=== PATIENT | female | born 1995 | race Caucasian/White ===

== ENCOUNTER → 2017-01-20 | Outpatient (REF) | payer OTHER, MEDICAID ==
[~2017-01-20] MED LIST: COLA100C3 PO; MILKSUS PO; MOTR200T44 PO; PRENTAB40 PO; PRIL20CA9 PO; TYLE325T5 PO; ZOFR4TAB3 PO
== END ==
LOC: M LAB REF 11:16
PROVIDERS: ATTEND Physician Assistant Medical
DX: J02.9 Acute pharyngitis, unspecified (principal)

== ENCOUNTER 2017-01-22 12:41 | Emergency (ER) | payer OTHER, MEDICAID ==
[~2017-01-22] VITALS: Ht 157.5 cm; Wt 129.3 kg
[2017-01-22 12:41] VITALS: BP 127/82
[~2017-01-22 12:41] MED LIST changes: -PRIL20CA9 PO; -ZOFR4TAB3 PO
[2017-01-22] MEDS ORDERED: ONDANSETRON 4 MG ORAL DISINTEGRATING TAB (S0181) PO ONE (13:15)
[2017-01-22 13:48] LABS: BASO # 0.1 K/mm3 (0.0-0.2); BASO % 0.7 % (0.0-1.0); EOS # 0.3 K/mm3 (0.0-0.50); EOS % 2.9 % (0.0-3.0); LARGE UNSTAINED CELL # 0.3 K/mm3 (0.0-0.4); LARGE UNSTAINED CELL % 2.9 % (0.0-4.0); LYMPH # 2.2 K/mm3 (1.5-6.5); LYMPH % 19.6 % (24.0-44.0); MEAN CORPUSCULAR HEMOGLOBIN 28.1 pg (27.0-33.0); MEAN CORPUSCULAR HGB CONC 34.6 g/dl (32.0-36.5); MEAN CORPUSCULAR VOLUME 81.2 fl (80.0-96.0); MONO # 0.5 K/mm3 (0.0-0.8); NEUTROPHILS # 6.7 K/mm3 (1.8-7.7); PLATELET COUNT, AUTOMATED 338 k/mm3 (150-450); RED CELL DISTRIBUTION WIDTH 13.2 % (11.5-14.5); WHITE BLOOD COUNT 9.7 K/mm3 (4.0-10.0)
[2017-01-22 14:08] LABS: ALBUMIN 3.5 GM/DL (3.2-5.2); ALBUMIN/GLOBULIN RATIO 0.92 (1.00-1.93); ALKALINE PHOSPHATASE 90 U/L (45-117); ALT/SGPT 117 U/L (12-78); AMYLASE 17 U/L (25-115); ANION GAP 11 MEQ/L (8-16); AST/SGOT 57 U/L (15-37); BILIRUBIN,DIRECT 0.2 MG/DL (0.0-0.2); BILIRUBIN,TOTAL 0.6 MG/DL (0.2-1.0); BLOOD UREA NITROGEN 14 MG/DL (7-18); CALCIUM LEVEL 8.1 MG/DL (8.5-10.1); CARBON DIOXIDE LEVEL 23 MEQ/L (21-32); CHLORIDE LEVEL 103 MEQ/L (98-107); CREATININE FOR GFR 0.67 MG/DL (0.55-1.02); GLOMERULAR FILTRATION RATE > 60.0 (>60); GLUCOSE, FASTING 107 MG/DL (70-105); POTASSIUM SERUM 3.1 MEQ/L (3.5-5.1); SODIUM LEVEL 137 MEQ/L (136-145); TOTAL PROTEIN 7.3 GM/DL (6.4-8.2)
[2017-01-22] MEDS ORDERED: PRIL20CA9 PO (15:40)
[2017-01-22] MEDS ORDERED: ZOFR4TAB3 PO (15:40)
[2017-01-22] MEDS ORDERED: POTASSIUM CHLORIDE 10 MEQ SR TABLET PO ONE (15:45)
--- NOTE | 2017-01-23 07:42 | REP ---
RIGHT UPPER QUADRANT ULTRASOUND: Real-time sonographic evaluation of the right upper quadrant performed. The gallbladder is filled with sludge. No definite stones are seen. There is no gallbladder wall thickening. There is no pericholecystic fluid. There is no intrahepatic or extrahepatic biliary dilatation, the common bile duct measuring 4 mm in diameter. The patient was tender at the site of the gallbladder with transducer pressure. There appears to be fibrofatty infiltration of the liver. No other gross liver or pancreatic abnormality is seen. The study is limited, however, by patient body habitus and bowel gas. The right kidney demonstrates no hydronephrosis with normal size at 11. 6 cm in length. IMPRESSION: Somewhat limited exam due to patient body habitus and bowel gas. The gallbladder is filled with sludge and the patient is tender at that site with transducer pressure. No gallstones are seen. There is no evidence of gallbladder wall thickening, pericholecystic fluid or biliary dilatation. Signed by Joe Bhatti MD 01/23/2017 12:18 P
== END 2017-01-22 16:01 | disposition home or self-care (01) ==
LOC: M ED 13:45
DX: K80.50 Calculus of bile duct without cholangitis or cholecystitis without obstruction (principal); K76.0 Fatty (change of) liver, not elsewhere classified; J45.909 Unspecified asthma, uncomplicated; Z85.41 Personal history of malignant neoplasm of cervix uteri; F41.9 Anxiety disorder, unspecified; F32.9 Major depressive disorder, single episode, unspecified; Z79.899 Other long term (current) drug therapy

== ENCOUNTER → 2020-04-28 | Outpatient (REF) | payer OTHER ==
[~2020-04-28] MED LIST changes: -COLA100C3 PO; +COLA100C5 PO; +MILK120011 PO; -MILKSUS PO; +PRIL20CA9 PO; +ZOFR4TAB14 PO
[2020-06-16 11:16] LABS: APPEARANCE, URINE HAZY (CLEAR); BACTERIA, URINE AUTO NEGATIVE (NEGATIVE); BILIRUBIN, URINE AUTO NEGATIVE (NEGATIVE); BLOOD, URINE BLOOD 3+ (NEGATIVE); COLOR, URINE YELLOW (YELLOW); GLUCOSE, URINE (UA) AUTO NEGATIVE (NEGATIVE); KETONE, URINE AUTO NEGATIVE (NEGATIVE); LEUKOCYTE ESTERASE, URINE AUTO NEGATIVE (NEGATIVE); MUCUS, URINE SMALL (NEGATIVE); NITRITE, URINE AUTO NEGATIVE (NEGATIVE); PROTEIN, URINE AUTO NEGATIVE (NEGATIVE); RBC, URINE AUTO TNTC /HPF (0-3); SPECIFIC GRAVITY URINE AUTO 1.024 (1.002-1.035); SQUAMOUS EPITHELIAL CELL UR AU 4 /HPF (0-6); UROBILINOGEN, URINE AUTO 0.2 mg/dL (0.0-2.0); WBC, URINE AUTO 6 /HPF (0-3)
== END ==
LOC: M LAB REF 12:48
PROVIDERS: ATTEND Physician Assistant Medical
DX: N39.0 Urinary tract infection, site not specified (principal)

== ENCOUNTER → 2020-06-24 | Outpatient (CLI) | payer OTHER ==
[2020-06-24 09:21] LABS: HEMATOCRIT 43.4 % (36.0-47.0); HEMOGLOBIN 13.7 g/dl (12.0-15.5); MEAN CORPUSCULAR HEMOGLOBIN 28.2 pg (27.0-33.0); MEAN CORPUSCULAR HGB CONC 31.6 g/dl (32.0-36.5); MEAN CORPUSCULAR VOLUME 89.3 fl (80.0-96.0); PLATELET COUNT, AUTOMATED 270 10^3/uL (150-450); RED BLOOD COUNT 4.86 10^6/uL (4.00-5.40); WHITE BLOOD COUNT 8.5 10^3/uL (4.0-10.0)
[2020-06-24 09:39] LABS: HEMOGLOBIN A1c 5.8 %
[2020-06-24 09:51] LABS: ALBUMIN 3.4 GM/DL (3.2-5.2); ALT/SGPT 42 U/L (12-78); BILIRUBIN,TOTAL 0.4 MG/DL (0.2-1.0); BLOOD UREA NITROGEN 10 MG/DL (7-18); CALCIUM LEVEL 8.7 MG/DL (8.5-10.1); CARBON DIOXIDE LEVEL 30 MEQ/L (21-32); CHLORIDE LEVEL 103 MEQ/L (98-107); CHOLESTEROL LEVEL 197 MG/DL (<200); CHOLESTEROL RISK RATIO 5.324 (<5); CREATININE FOR GFR 0.61 MG/DL (0.55-1.30); GLOMERULAR FILTRATION RATE > 60.0 (>60); GLUCOSE, FASTING 121 MG/DL (70-100); HDL CHOLESTEROL 37 MG/DL (>40); LDL CHOLESTEROL 115 MG/DL (<100); NON-HDL-C 160 MG/DL; POTASSIUM SERUM 4.1 MEQ/L (3.5-5.1); SODIUM LEVEL 138 MEQ/L (136-145); TOTAL PROTEIN 6.9 GM/DL (6.4-8.2); TRIGLYCERIDES LEVEL 227 MG/DL (<150)
== END ==
LOC: M LAB 08:18
PROVIDERS: ATTEND Student in an Organized Health Care Education/Training Program
DX: Z00.00 Encounter for general adult medical examination without abnormal findings (principal); E66.9 Obesity, unspecified; R53.83 Other fatigue

== ENCOUNTER → 2021-05-13 | Outpatient (REF) | payer OTHER ==
[~2021-05-13] MED LIST changes: +BACTDSTA PO; +CIPR-249 PO; +LEXA5TAB13 PO; +probiotic
[2021-05-13 16:45] LABS: APPEARANCE, URINE HAZY (CLEAR); BACTERIA, URINE AUTO NEGATIVE (NEGATIVE); BILIRUBIN, URINE AUTO NEGATIVE (NEGATIVE); BLOOD, URINE BLOOD 3+ (NEGATIVE); COLOR, URINE YELLOW (YELLOW); GLUCOSE, URINE (UA) AUTO NEGATIVE (NEGATIVE); KETONE, URINE AUTO NEGATIVE (NEGATIVE); LEUKOCYTE ESTERASE, URINE AUTO TRACE (NEGATIVE); NITRITE, URINE AUTO NEGATIVE (NEGATIVE); PROTEIN, URINE AUTO NEGATIVE (NEGATIVE); RBC, URINE AUTO 11 /HPF (0-3); SPECIFIC GRAVITY URINE AUTO 1.015 (1.002-1.035); SQUAMOUS EPITHELIAL CELL UR AU 3 /HPF (0-6); UROBILINOGEN, URINE AUTO 0.2 mg/dL (0.0-2.0); WBC, URINE AUTO 7 /HPF (0-3)
== END ==
LOC: M LAB REF 16:15
PROVIDERS: ATTEND Physician Assistant Medical
DX: R30.0 Dysuria (principal)

== ENCOUNTER 2021-05-16 17:32 | Emergency (ER) | payer OTHER ==
[~2021-05-16] VITALS: Ht 157.5 cm; Wt 136.4 kg
[~2021-05-16 17:32] MED LIST changes: -BACTDSTA PO; -CIPR-249 PO; -LEXA5TAB13 PO; -probiotic
[2021-05-16] MEDS ORDERED: LEXA5TAB13 PO (18:17)
[2021-05-16] MEDS ORDERED: probiotic (18:17)
[2021-05-16] MEDS ORDERED: BACTDSTA PO (18:17)
--- NOTE | 2021-05-16 20:47 | REPVR ---
PROCEDURE INFORMATION: Exam: CT Abdomen And Pelvis Without Contrast Exam date and time: 05/16/2021 8:14 PM Age: 25 years old Clinical indication: Abdominal pain; Flank; Other: Unknown; Additional info: Hematuria/flank pain TECHNIQUE: Imaging protocol: Computed tomography of the abdomen and pelvis without contrast. Radiation optimization: All CT scans at this facility use at least one of these dose optimization techniques: automated exposure control; mA and/or kV adjustment per patient size (includes targeted exams where dose is matched to clinical indication); or iterative reconstruction. COMPARISON: GALLBLADDER US 01/22/2017 2:45 PM FINDINGS: Liver: There is a diffuse decrease in hepatic parenchymal density, consistent with steatosis. Hepatomegaly. Gallbladder and bile ducts: Normal. No calcified stones. No ductal dilation. Pancreas: Normal. No ductal dilation. Spleen: Normal. No splenomegaly. Adrenal glands: Normal. No mass. Kidneys and ureters: Normal. No hydronephrosis. Stomach and bowel: Unremarkable. No obstruction. No mucosal thickening. Appendix: No evidence of appendicitis. Intraperitoneal space: Unremarkable. No free air. No significant fluid collection. Vasculature: Unremarkable. No abdominal aortic aneurysm. Lymph nodes: Unremarkable. No enlarged lymph nodes. Urinary bladder: Unremarkable as visualized. Reproductive: Unremarkable as visualized. Bones/joints: Unremarkable. No acute fracture. Soft tissues: Unremarkable. IMPRESSION: 1. There is a diffuse decrease in hepatic parenchymal density, consistent with steatosis. Hepatomegaly. 2. No acute findings. Electronically signed by: Jesus Horn On 05/16/2021 20:47:20 PM
[2021-05-16] MEDS ORDERED: CIPROFLOXACIN 500MG TABLET PO ONE (21:00)
[2021-05-16] MEDS ORDERED: CIPR-249 PO (21:02)
[2021-05-16 21:26] VITALS: BP 126/72
== END 2021-05-16 21:23 | disposition home or self-care (01) ==
LOC: M ED 17:32
DX: N39.0 Urinary tract infection, site not specified (principal)

== ENCOUNTER 2021-07-19 11:02 | Inpatient (IN) | payer OTHER ==
[~2021-07-19] VITALS: Ht 157.5 cm; Wt 143.4 kg
[~2021-07-19 11:02] MED LIST changes: +BACTDSTA PO; +CIPR-249 PO; +LEXA5TAB13 PO; +probiotic
--- OUTSIDE RECORDS SUMMARY | 2021-07-19 11:10 | CCD | Continuity of Care Document ---
Author Author [facility] Organization [facility] Address [address] [place] [address] Phone Care Team Providers Care Loom Winder Tender Name Role Phone Dwello Kianna SALVADOR Unavailable Unavailable Allergies, Adverse Reactions, Alerts Substance Reaction Status Criticality No Known Allergies Active No Information Medications Medication Instructions Dosage Effective Dates (start - stop) Sta tus Comments metronidazole 500 mg tablet take 1 tablet by oral route every 1 2 hours 500 MG - Active Problems Condition Effective Dates (start - stop) Clinical Status C omments Acute vaginitis Human immunodeficiency virus [HIV] counseling Abnormal uterine and vaginal bleeding, unspecified Other sex counseling Encntr screen for infections w sexl mode of transmiss Encounter for oth general cnsl and advice on contraception Frequency of micturition Encounter for test, result negative Encounter for initial prescription of injectable contracep Encounter for oth general cnsl and advice on contraception Human immunodeficiency virus [HIV] counseling - Procedures Procedure Date No Information Results Test Name Date and Time Measure Units Reference Range Abnormal Flag St atus Comments No Information Advance Directives Directive Yes / No Effective Date File Name No Information Encounters Encounter Description Practice Location Reason(s) For Visit Diagnose s Date Provider Providers Copied on Encounter [facility], [address] [place], [place], [id number], [place] tel:[phone] [facility] [place] Acute vaginitis Comfort Priest. [address] [place], [place], [id number], [place]. tel:[phone] [facility], [address] [place] [address], [id number], tel:[phone] [facility] Human immunodeficie ncy virus [HIV] counselingAbnormal uterine and vaginal bleeding, unspecifiedOther sex counselingEncntr screen for infections w sexl mode of transmissEncounter for oth general cnsl and advice on contraceptionFrequency of micturition Comfort Priest. [address] [place] [address], [id number], . tel:[phone] Referring Provider: Kianna Priest Dwello, [address] [place] [address], [id number]. tel:[phone] [facility], [address] [place] [address], [id number], tel:[phone] [facility] Encounter for pregn soni test, result negativeEncounter for initial prescription of injectable contracepEncounter for oth general cnsl and advice on contraceptionHuman immunodeficiency virus [HIV] counseling King Etelvina. [address] [place] [address], [id number]. tel:[phone] Referring Provider: Etelvina Yoder, [address] [place], [place], [id number]. tel:[phone] Family History Family Member Diagnosis Age At Onset Brother No history of Stroke Sister No history of Stroke Sister No history of Myocardial infarction Brother No history of Myocardial infarction Father No history of Myocardial infarction Father No history of Stroke Mother No history of Myocardial infarction Mother No history of Stroke Immunizations Vaccine Date Status Comments No Information Payers Payer name Insurance type Covered green party ID Authorization(s ) [facility] CI [id number] Social History Type Description Quantity Date Captured Comments Alcohol Use Details Unknown Caffeine Use Details Unknown Tobacco Use Status No Information Smoking Status Never smoker Sex Female Vital Signs Date / Time: Height Weight BMI Pulse Rate Blood Pressure Temperatu re Respiratory Rate Body Surface Area Head Circumference BMI percentile Pulse Ox In haled Ox No Information Chief Complaint And Reason For Visit No Information Reason For Referral Reason For Referral No Information Plan Of Treatment Date Type Action Status No Information History Of Present Illness Encounter Date Complaint History Of Present I llness No Information Functional Status Date Functional Assessment No Information Medications Administered Medication Instructions Dosage Effective Dates (start - stop) Sta tus Comments No Information Instructions Date Instruction Additional Informati on No Information Assessments Type Assessment Date assessment Acute vaginitis Goals Health Concern Goal Type Priority Status Date No Information Medical Equipment Description Device [place] Device Identifier Effective Mark es (start - stop) Status No Information Mental Status Date Cognitive Assessment No Information Health Concerns Observation Date No Information Concern Status Date No Information Physical Examination Exam Findings Details No Information
--- OUTSIDE RECORDS SUMMARY | 2021-07-19 11:10 | CCD | Continuity of Care Document ---
Author Author [facility] Organization [facility] Address Unknown Phone Unavailable Care Team Providers Care Nonfarm Animal Caretaker Name Role Phone Dwello Kianna SALVADOR Unavailable Unavailable Allergies, Adverse Reactions, Alerts Substance Reaction Status Criticality No Known Allergies Active No Information Medications Medication Instructions Dosage Effective Dates (start - stop) Sta tus Comments Macrobid 100 mg capsule take 1 capsule by oral route every 12 hours with food X 5 days - Active metronidazole 500 mg tablet take 1 tablet by oral route every 1 2 hours 500 MG - Active Problems Condition Effective Dates (start - stop) Clinical Status C omments Acute cystitis without hematuria Acute vaginitis Human immunodeficiency virus [HIV] counseling [...] Provider Providers Copied on Encounter [facility], [address] [place], [place], [id number], [place] tel:[phone] [facility] [place] No Information Wilder Priest. [address] [place], [place], [id number], [place]. tel:[phone] [facility], [address] [place], [place], [id number], [place] tel:[phone] [facility] [place] Acute cystitis without hem aturia Dwello Kianna Kentley. [address] [place], [place], [id number], [place]. tel:[phone] [facility], [address] [place], [place], [id number], [place] tel:[phone] [facility] [place] Acute vaginitis Dwello Kianna Priest. [address] [place], [place], [id number], [place]. tel:[phone] [facility], [address] [place] [address], [id number], [place] tel:[phone] [facility] Human immunodeficie ncy virus [HIV] counselingAbnormal uterine and vaginal bleeding, unspecifiedOther sex counselingEncntr screen for infections w sexl mode of transmissEncounter for oth general cnsl and advice on contraceptionFrequency of micturition Dwello Kianna Priest. [address] [place] [address], [id number], [place]. tel:[phone] Referring Provider: Kianna Moyer, [address] [place] [address], [id number]. tel:[phone] [facility], [address] [place] [address], [id number], [place] tel:[phone] [facility] Encounter for pregn soni test, result negativeEncounter for initial prescription of injectable contracepEncounter for oth general cnsl and advice on contraceptionHuman immunodeficiency virus [HIV] counseling King Etelvina. [address] [place] [address], [id number]. tel:[phone] Referring Provider: Etelvina Yoder, [address] [place], [place], [id number]. tel:[phone] Family History Family Member Diagnosis Age At [...] Information Payers Payer name Insurance type Covered alliance party ID Authorization(s ) [facility] CI [id number] Social History Type Description Quantity Date Captured [...] on No Information Assessments Type Assessment Date No Information Goals Health Concern Goal Type Priority Status Date No Information Medical Equipment Description Device [place] Device Identifier Effective Mark es (start - stop) Status No Information Mental Status Date Cognitive Assessment No Information Health Concerns Observation Date No Information Concern Status Date No Information Physical Examination Exam Findings Details No Information
--- OUTSIDE RECORDS SUMMARY | 2021-07-19 11:10 | CCD | Continuity of Care Document ---
Author Author [facility] Organization [facility] Address [address] [place] [address] Phone Care Team Providers Care Packaging Design Engineer Name Role Phone Dwello Kianna SALVADOR Unavailable [...] Date Provider Providers [facility] [address] [place], [place], [id number], tel:[phone] [facility] [place] Acute cystitis without hem aturia Comfort Priest. [address] [place], [place], [id number], . tel:[phone] [facility], [address] [place] [address], [id number], [place] tel:[phone] [facility] Acute vaginitis Dwello Kianna Priest. [address] [place], [place], [id number], . tel:[phone] [facility], [address] [place] [address], [id number], [place] tel:[phone] [facility] Human immunodeficie ncy virus [HIV] counselingAbnormal uterine and vaginal bleeding, unspecifiedOther sex counselingEncntr screen for infections w sexl mode of transmissEncounter for oth general cnsl and advice on contraceptionFrequency of micturition Dwelljorge alberto Priest. [address] [place] [address], [id number], [place]. tel:[phone] Referring Provider: Kianna Moyer, [address] [place] [address], [id number]. tel:[phone] [facility], [address] [place] [address], [id number], [place] tel:[phone] [facility] Encounter for pregn soni test, result negativeEncounter for initial prescription of injectable contracepEncounter for oth general cnsl and advice on contraceptionHuman immunodeficiency virus [HIV] counseling King Etelvina. [address] [place], [place], [id number]. tel:[phone] Referring Provider: Etelvina Yoder, [address] [place], [place], [id number]. tel:[phone] Family History Family Member Diagnosis Age At [...] Information Payers Payer name Insurance type Covered libertarian ID Authorization(s ) [facility] CI [id number] Social History Type Description Quantity Date Captured [...] Information Assessments Type Assessment Date assessment Acute cystitis without hematuria 2020 Goals Health Concern Goal Type Priority Status Date No Information Medical Equipment Description Device [place] Device Identifier Effective Mark es (start - stop) Status No Information Mental Status Date Cognitive Assessment No Information Health Concerns Observation Date No Information Concern Status Date No Information Physical Examination Exam Findings Details No Information
--- OUTSIDE RECORDS SUMMARY | 2021-07-19 11:10 | CCD | Continuity of Care Document ---
Author Author [facility] Organization [facility] Address Unknown Phone Unavailable Care Team Providers Care Elevator Adjuster Name Role Phone Dwello Kianna SALVADOR Unavailable Unavailable Allergies, Adverse Reactions, Alerts Substance Reaction Status Criticality No Known Allergies Active No Information Medications Medication Instructions Dosage Effective Dates (start - stop) Sta tus Comments No Drug Therapy Prescribed Problems Condition Effective Dates (start - stop) Clinical Status C omments Human immunodeficiency virus [HIV] counseling Abnormal uterine [...] virus [HIV] counseling - Procedures Procedure Date CHYLMD TRACH, SWAB N.GONORRHOEAE, SWAB URINE CULTURE/COLONY COUNT SHARMILA, DNA, DIR PROBE SANCHES VAG, DNA, DIR PROBE TRICHOMONAS VAGIN, DIR PROBE ASSAY OF BODY FLUID ACIDITY SMEAR, WET MOUNT, SALINE/INK OFFICE/OUTPATIENT VISIT, NEW HCS Without Test CVR Blood Pressure CVR Med.Svc. Height/Weight CVR Mechanical System Technician.Svc. Contraceptive CVR Mechanical System Technician.Svc. STI / H CHYLMD TRACH, URINE N.GONORRHOEAE, URINE Results Test Name Date and Time Measure Units Reference Range Abnormal Flag St atus Comments Panel Description: Wet Prep Final Wet Prep 08:35:24 Hyphae/Sharmila: no; Budding yeast: no; Trich: no; Clue cells: no; WBCs: no; Amine/Whiff test: negative; pH: 5.5 Final Panel Description: Vaginal pH Final Vaginal pH 08:35:06 pH: 5.5. Final NOTE: This patient has pending results not included in this document. Advance Directives Directive Yes / No Effective Date File Name No Information Encounters Encounter Description Practice Location Reason(s) For Visit Diagnose s Date Provider Providers Copied on Encounter OFFICE/OUTPATIENT VISIT, [facility], [address] [place] [address], [id number], tel:[phone] [facility] Abnorma l Vaginal Bleeding (chief complaint) Human immunodeficiency virus [HIV] counselingAbnormal uterine and vaginal bleeding, unspecifiedOther sex counselingEncntr screen for infections w sexl mode of transmissEncounter for oth general cnsl and advice on contraceptionFrequency of micturition Comfort Priest. [address] [place] [address], [id number], . tel:[phone] Referring Provider: Kianna Moyer, [address] [place] [address], [id number]. tel:[phone] [facility], [address] [place] [address], [id number], tel:[phone] [facility] Encounter for pregn soni test, result negativeEncounter for initial prescription of injectable contracepEncounter for oth general cnsl and advice on contraceptionHuman immunodeficiency virus [HIV] counseling King Etelvina. [address] [place] [address], [id number]. tel:[phone] Referring Provider: Etelvina Yoder, [address] [place] [address], [id number]. tel:[phone] Family History Family Member Diagnosis Age At [...] Information Payers Payer name Insurance type Covered republican ID Authorization(s ) [facility] CI [id number] Social History Type Description Quantity Date Captured Comments Alcohol Use Details Unknown Caffeine Use Details Unknown Tobacco Use Status No Information Smoking Status Never smoker Non-Smoking Tobacco Use Details : No Details Available : No Details Available Sex Female Vital Signs Date / Time: Height Weight BMI Pulse Rate Blood Pressure Temperatu re Respiratory Rate Body Surface Area Head Circumference BMI percentile Pulse Ox In haled Ox 7:46 AM 62.00 in 315.00 lbs 57.61 kg/meter(2) 138/82 m m[Hg] Chief Complaint And Reason For Visit Most recent encounter only, dated 06/04/2021 07:30'. Abnormal Vaginal Bleeding (chief complaint) Reason For Referral Reason For Referral No Information Plan Of Treatment Date Type Action Status Appointment Lisa Szymanski CANCELLED History Of Present Illness Encounter Date Complaint History Of Present I llness No Information Functional Status Date Functional Assessment No Information Medications Administered Medication Instructions Dosage Effective Dates (start - stop) Sta tus Comments No Drug Therapy Prescribed Instructions Date Instruction Additional Informati on No Information Assessments Type Assessment Date assessment Human immunodeficiency virus [HIV] couns eling assessment Abnormal uterine and vaginal bleeding, u nspecified assessment Other sex counseling assessment Encntr screen for infections w sexl mode of transmiss assessment Encounter for oth general cnsl and advic e on contraception assessment Frequency of micturition Goals Health Concern Goal Type Priority Status Date No Information Medical Equipment Description Device [place] Device Identifier Effective Mark es (start - stop) Status No Information Mental Status Date Cognitive Assessment No Information Health Concerns Observation Date No Information Concern Status Date No Information Physical Examination Exam Findings Details Genitourinary * Vagina - menses. Genitourinary Normal Urethral meatus - No rmal. Urethra - Normal. External genitalia - Normal. Cervix - Normal. Neurological Normal Level of consciousne ss - Normal. Orientation - Normal.
--- OUTSIDE RECORDS SUMMARY | 2021-07-19 11:10 | CCD | Continuity of Care Document ---
Author Author [facility] Organization [facility] Address Unknown Phone Unavailable Care Team Providers Care Primary Therapist Name Role Phone Rufus SOFTWARE CONFIGURATION ANALYST, Paige Godinez Unavailable Unavailable Allergies, Adverse Reactions, Alerts Substance Reaction Status Criticality No Known Allergies Active No Information Medications Medication Instructions Dosage Effective Dates (start - stop) Sta tus Comments Apri 0.15 mg-0.03 mg tablet 1 PO daily - Active fluconazole 150 mg tablet 1 po x 1 for fungal infection - No Longer Active Macrobid 100 mg capsule take 1 capsule by oral route every 12 hours with food X 5 days - No Longer Active Problems Condition Effective Dates (start - stop) Clinical Status C omments Encounter for oth general cnsl and advice on contraception Encounter for initial prescription of contraceptive pills 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 Height/Weight CVR Tire Bagger.Svc. Contraceptive CVR Tire Bagger.Svc. Other CVR Tire Bagger.Svc. STI / H Results Test Name Date and Time Measure Units Reference Range Abnormal Flag St atus Comments No Information Advance Directives Directive Yes / No Effective Date File Name No Information Encounters Encounter Description Practice Location Reason(s) For Visit Diagnose s Date Provider Providers Copied on Encounter PREV VISIT, EST, AGE 18-39 [facility] [address] [place] [address], [id number], [place] tel:[phone] [facility] Prevent ative Visit (chief complaint)Urinary Symptoms (F) (chief complaint) Encounter for oth general cnsl and advice on contraceptionEncounter for initial prescription of contraceptive pillsEncntr for dock supervisor 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 [address] [place] [address], [id number], [place]. tel:[phone] Referring Provider: Paige Hooper, [address] [place] [address], [id number]. tel:[phone] [facility], [address] [place] [address], [id number], [place] tel:[phone] [facility] Acute cystitis without hem aturia Keyonnao Kianna Priest. [address], [place], [id number], [place]. tel:[phone] [facility], [address] [place] [address], [id number], [place] tel:[phone] [facility] Acute vaginitis Dwello Kianna Priest. [address] [place] [address], [id number], . tel:[phone] [facility], [address] [place] [address], [id number], tel:[phone] [facility] Human immunodeficie ncy virus [HIV] counselingAbnormal uterine and vaginal bleeding, unspecifiedOther sex counselingEncntr screen for infections w sexl mode of transmissEncounter for oth general cnsl and advice on contraceptionFrequency of micturition Dwello Kianna Priest. [address] [place] [address], [address] [place] [address], . tel:[phone] Referring Provider: Kianna Moyer, [address] [place] [address], [id number]. tel:[phone] [facility], [address] [place] [address], [id number], tel:[phone] [facility] Encounter for pregn soni test, result negativeEncounter for initial prescription of injectable contracepEncounter for oth general cnsl and advice on contraceptionHuman immunodeficiency virus [HIV] counseling King Etelvina. [address] [place] [address], [id number]. tel:[phone] Referring Provider: Etelvina Yoder, [address] [place] [address], [id number]. tel:[phone] Family History Family Member Diagnosis Age At [...] type Covered alliance party ID Authorization(s ) [facility] CI [id number] Social History Type Description Quantity Date Captured [...] BMI percentile Pulse Ox In haled Ox 1:36 PM 62.00 in 314.40 lbs 57.50 kg/meter(2) 128/86 m m[Hg] Chief Complaint And Reason For Visit Most recent encounter only, dated 06/17/2021 13:30'. 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 assessment Human immunodeficiency virus [HIV] couns eling assessment Other sex counseling assessment Candidiasis of vulva and vagina assessment Urgency of urination assessment Other specified noninflammatory disorder s of vagina Goals Health Concern Goal Type Priority Status Date No Information Medical Equipment Description Device [place] Device Identifier Effective Makr es (start - stop) Status No Information Mental Status Date Cognitive Assessment No Information Health Concerns Observation Date No Information Concern Status Date No Information Physical Examination Exam Findings Details Abdomen Normal Inspection - Normal. Anterior palpation - Normal. No abdominal tenderness. No hepatic enlargement. No splenic enlargement. No palpable mass. Cardiovascular Normal Heart rate - Regular rate. Rhythm - Regular. Heart sounds - Normal S1, Normal S2. Murmurs - None. Extremities - No edema. Extremity Normal No Cyanosis. No Kuldeep a. Neck Exam Normal Inspection - Normal. Palpation - Normal. Thyroid gland - Normal. Cervical lymph nodes - Normal. Neurological Normal Level of consciousne ss - Normal. Orientation - Normal. Respiratory Normal Inspection - Normal. Auscultation - Normal. Effort - Normal. Skin Normal Inspection - Normal. Palpation/texture - Normal. Breast Normal Inspection - Bilater al: Normal. Palpation - Bilateral: Normal. Nipples - Bilateral: Normal. Lymph nodes - Normal. Genitourinary Comments large body habitus, difficult to assess, menses appearing flow light upon exam. Genitourinary Normal Urethral meatus - No rmal. Urethra - Normal. External genitalia - Normal. Glands - Normal. Perineum - Normal. Anus - Normal. Vagina - Normal. Cervix - Normal. Uterus - Normal. Adnexa - Normal. Adequate sized pelvis. No suprapubic tenderness. No CVA tenderness. No flank mass. Genitourinary * Uterus - Uterine gabriel entation: Ant. Uterus size: normal. Rectal deferred. Vaginal discharge.
--- OUTSIDE RECORDS SUMMARY | 2021-07-19 11:10 | CCD ---
Author Author [facility] Address Unknown Phone Unavailable Care Team Providers Care [employer] Supervisor Name Role Phone Farhat JAIN DHRUV Unavailable [phone] Farhat JAIN DHRUV Unavailable [phone] Farhat JAIN DHRUV Unavailable [phone] Farhat JAIN DHRUV Unavailable [phone] Farhat JAINP DHRUV Unavailable [phone] Farhat JAIN RACK PRODUCTION WORKER DHRUV Unavailable [phone] CRISTOBAL, A. RACK PRODUCTION WORKER DHRUV Unavailable [phone] CRISTOBAL, A. RACK PRODUCTION WORKER DHRUV Unavailable [phone] CRISTOBAL, A. RACK PRODUCTION WORKER DHRUV Unavailable [phone] CRISTOBAL, A. RACK PRODUCTION WORKER DHRUV Unavailable [phone] CRISTOBAL, A. RACK PRODUCTION WORKER DHRUV Unavailable [phone] CRISTOBAL, A. RACK PRODUCTION WORKER DHRUV Unavailable [phone] CRISTOBAL, A. RACK PRODUCTION WORKER DHRUV Unavailable [phone] CRISTOBAL, A. RACK PRODUCTION WORKER DHRUV Unavailable [phone] CRISTOBAL, A. RACK PRODUCTION WORKER DHRUV Unavailable [phone] CRISTOBAL, A. RACK PRODUCTION WORKER DHRUV Unavailable [phone] Green MARINE FITTER MARINE FITTER, Paige Unavailable Unavailable Green MARINE FITTER MARINE FITTER, Paige Unavailable Unavailable Green MARINE FITTER MARINE FITTER, Paige Unavailable Unavailable Green MARINE FITTER MARINE FITTER, Paige Unavailable Unavailable Green MARINE FITTER MARINE FITTER, Paige Unavailable Unavailable To, Haroon Mata MD Unavailable Unavailable To, A Esperanza GUTIÉRREZ Unavailable Unavailable To, A Esperanza GUTIÉRREZ Unavailable Unavailable To, A Esperanza GUTIÉRREZ Unavailable Unavailable To, A Esperanza GUTIÉRREZ Unavailable Unavailable To, A Esperanza GUTIÉRREZ Unavailable Unavailable To, A Esperanza GUTIÉRREZ Unavailable Unavailable To, Haroon Mata MD Unavailable Unavailable To, Haroon Mata MD Unavailable Unavailable To, Haroon Mata MD Unavailable Unavailable To, Haroon Mata MD Unavailable Unavailable To, Haroon Mata MD Unavailable Unavailable To, Haroon Mata MD Unavailable Unavailable To, Haroon Mata MD Unavailable Unavailable To, Haroon Mata MD Unavailable Unavailable To, A Esperanza GUTIÉRREZ Unavailable Unavailable To, A Esperanza GUTIÉRREZ Unavailable Unavailable To, A Esperanza GUTIÉRREZ Unavailable Unavailable To, A Esperanza GUTIÉRREZ Unavailable Unavailable To, A Esperanza GUTIÉRREZ Unavailable Unavailable To, A Esperanza GUTIÉRREZ Unavailable Unavailable To, A Esperanza GUTIÉRREZ Unavailable Unavailable To, A Esperanza GUTIÉRREZ Unavailable Unavailable Ot, A Esperanza GUTIÉRREZ Unavailable Unavailable To, A Esperanza GUTIÉRREZ Unavailable Unavailable To, A Esperanza GUTIÉRREZ Unavailable Unavailable To, A Esperanza GUTIÉRREZ Unavailable Unavailable To, A Esperanza GUTIÉRREZ Unavailable Unavailable To, A Esperanza GUTIÉRREZ Unavailable Unavailable To, A Esperanza GUTIÉRREZ Unavailable Unavailable To, A Esperazna GUTIÉRREZ Unavailable Unavailable To, A Esperanza GUTIÉRREZ Unavailable Unavailable To, A Esperanza GUTIÉRREZ Unavailable Unavailable To, A Esperanza GUTIÉRREZ Unavailable Unavailable To, A Esperanza GUTIÉRREZ Unavailable Unavailable To, A Esperanza GUTIÉRREZ Unavailable Unavailable To, A Esperanza GUTIÉRREZ Unavailable Unavailable To, A Esperanza GUTIÉRREZ Unavailable Unavailable To, A Esperanza GUTIÉRREZ Unavailable Unavailable To, A Esperanza GUTIÉRREZ Unavailable Unavailable To, A Esperanza GUTIÉRREZ Unavailable Unavailable To, A Esperanza GUTIÉRREZ Unavailable Unavailable To, A Esperanza GUTIÉRREZ Unavailable Unavailable To, A Esperanza GUTIÉRREZ Unavailable Unavailable To, A Esperanza GUTIÉRREZ Unavailable Unavailable To, A Esperanza GUTIÉRREZ Unavailable Unavailable To, A Esperanza GUTIÉRREZ Unavailable Unavailable To, A Esperanza GUTIÉRREZ Unavailable Unavailable To, A Esperanza GUTIÉRREZ Unavailable Unavailable To, A Esperanza GUTIÉRREZ Unavailable Unavailable To, A Esperanza GUTIÉRREZ Unavailable Unavailable To, A Esperanza GUTIÉRREZ Unavailable Unavailable To, A Esperanza GUTIÉRREZ Unavailable Unavailable To, A Esperanza GUTIÉRREZ Unavailable Unavailable To, A Esperanza GUTIÉRREZ Unavailable Unavailable To, A Esperanza GUTIÉRREZ Unavailable Unavailable To, A Esperanza GUTIÉRREZ Unavailable Unavailable To, A Esperanza GUTIÉRREZ Unavailable Unavailable To, A Esperanza GUTIÉRREZ Unavailable Unavailable To, A Esperanza GUTIÉRRZE Unavailable Unavailable To, A Esperanza GUTIÉRREZ Unavailable Unavailable To, A Esperanza GUTIÉRREZ Unavailable Unavailable To, A Esperanza GUTIÉRREZ Unavailable Unavailable To, A Esperanza GUTIÉRREZ Unavailable Unavailable To, A Esperanza GUTIÉRREZ Unavailable Unavailable To, A Esperanza GUTIÉRREZ Unavailable Unavailable To, A Esperanza GUTIÉRREZ Unavailable Unavailable To, A Esperanza GUTIÉRREZ Unavailable Unavailable To, A Esperanza GUTIÉRREZ Unavailable Unavailable To, A Esperanza GUTIÉRREZ Unavailable Unavailable To, A Esperanza GUTIÉRREZ Unavailable Unavailable To, A Esperanza GUTIÉRREZ Unavailable Unavailable To, A Esperanza GUTIÉRREZ Unavailable Unavailable To, A Esperanza GUTIÉRREZ Unavailable Unavailable To, A Esperanza GUTIÉRREZ Unavailable Unavailable To, A Esperanza GUTIÉRREZ Unavailable Unavailable To, A Esperanza GUTIÉRREZ Unavailable Unavailable To, A Esperanza GUTIÉRREZ Unavailable Unavailable To, A Esperanza GUTIÉRREZ Unavailable Unavailable To, A Esperanza GUTIÉRREZ Unavailable Unavailable To, A Esperanza GUTIÉRREZ Unavailable Unavailable To, A Esperanza GUTIÉRREZ Unavailable Unavailable Dwello PA PA, Kianna Unavailable Unavailable Dwello PA PA, Kianna Unavailable Unavailable Dwello PA PA, Kianna Unavailable Unavailable Dwello PA PA, Kianna Unavailable Unavailable Dwello PA PA, Kianna Unavailable Unavailable Dwello PA PA, Kianna Unavailable Unavailable Dwello PA PA, Kianna Unavailable Unavailable Re-disclosure Warning The records that you are about to access may contain information from federally-assisted alcohol or drug abuse programs. If such information is present, then the following federally mandated warning applies: This information has been disclosed to you from records protected by federal confidentiality rules (42 CFR part 2). The federal rules prohibit you from making any further disclosure of this information unless further disclosure is expressly permitted by the written consent of the person to whom it pertains or as otherwise permitted by 42 CFR part 2. A general authorization for the release of medical or other information is NOT sufficient for this purpose. The Federal rules restrict any use of the information to criminally investigate or prosecute any alcohol or drug abuse patient.The records that you are about to access may contain highly sensitive health information, the redisclosure of which is protected by Article 27-F of the [facility] Public Health law. If you continue you may have access to information: Regarding HIV / AIDS; Provided by facilities licensed or operated by the [facility] Office of Mental Health; or Provided by the [facility] Office for People With Developmental Disabilities. If such information is present, then the following [facility] mandated warning applies: This information has been disclosed to you from confidential records which are protected by state law. State law prohibits you from making any further disclosure of this information without the specific written consent of the person to whom it pertains, or as otherwise permitted by law. Any unauthorized further disclosure in violation of state law may result in a fine or senior care sentence or both. A general authorization for the release of medical or other information is NOT sufficient authorization for further disc losure. Family History Family Member Name Family Member Gender Family Member Status Date o f Status Description Data Source(s) Unknown Male Diagnosis 07/15/2016 12:00:00 AM EDT [facility] ([facility]) Unknown Male Diagnosis 07/15/2016 12:00:00 AM EDT [facility] ([facility]) Encounters Encounter Providers Location Date Indications Data Source(s ) Attender: Esperanza Wahl 12/2020 12:24:00 PM EDT - 07/15/2021 12:24:00 PM EDT [facility] ([facility]) Outpatient Attender: DHRUV JAIN 06/13 06:00:45 PM EDT - 07/11/2021 06:23:31 PM EDT [facility] ([facility] ) Attender: Paige Hooper NP MARINE FITTER VALORIE Wahl 1 07:42:00 AM EDT - 06/23/2021 07:42:00 AM EDT [facility] ([facility]) Attender: Esperanza Wahl 08/2021 08:50:00 AM EDT - 06/22/2021 08:50:00 AM EDT [facility] ([facility]) PREV VISIT, EST, AGE 18-39Outpatient Attender: Paige Hooper NP MARINE FITTER VALORIE Wahl 06/17/2021 01:30:00 PM EDT - 06/17/2021 01:30:00 PM ED T Abnormal uterine and vaginal bleeding, unspecifiedOther specified noninflammatory disorders of vaginaUrgency of urinationCandidiasis of vulva and vaginaOther sex counselingHuman immunodeficiency virus [HIV] counselingEncntr for manager technology exam (general) (routine) w abnormal findingsEncounter for initial prescription of contraceptive pillsEncounter for oth general cnsl and advice on contraception [facility] ([facility]) Abnormal uterine and vaginal bleeding, u nspecified Other specified noninflammatory disorder s of vagina Urgency of urination Candidiasis of vulva and vagina Other sex counseling Human immunodeficiency virus [HIV] couns eling Encntr for manager technology exam (general) (routine) w abnormal findings Encounter for initial prescription of co ntraceptive pills Encounter for oth general cnsl and advic e on contraception Attender: Kianna Wahl 09/2020 07:19:00 AM EDT - 06/11/2021 07:19:00 AM EDT [facility] ([facility]) Attender: Kianna Wahl 06:47:00 PM EDT - 06/10/2021 06:47:00 PM EDT Acute cystitis without hematuria [facility] ([facility]) Acute cystitis without hematuria Attender: Kianna Wahl 08:54:00 AM EDT - 06/07/2021 08:54:00 AM EDT Acute vaginitis [facility] ([facility]) Acute vaginitis OFFICE/OUTPATIENT VISIT, [facility] Attender: Kianna SALVADOR PPNCNY Weott 06/04/2021 07:30:00 AM EDT - 06/04/2021 07:30:00 AM ED T Frequency of micturitionEncounter for oth general cnsl and advice on contraceptionEncntr screen for infections w sexl mode of transmissOther sex counselingAbnormal uterine and vaginal bleeding, unspecifiedHuman immunodeficiency virus [HIV] counseling [facility] ([facility]) Frequency of micturition Encounter for oth general cnsl and advic e on contraception Encntr screen for infections w sexl mode of transmiss Other sex counseling Abnormal uterine and vaginal bleeding, u nspecified Human immunodeficiency virus [HIV] couns man [facility] Out[facility] [address] [address] 06/26/2020 12:00:00 AM EDT eCW ([facility]) Medications Medication Brand Name Start Date Product Form Dose Route Admi nistrative Instructions Pharmacy Instructions Status Indications Reaction Description Data Source(s) Isibloom 28 Day Pack 0.15-0.03 mg DESOGESTREL-ETHINYL ESTRAD IOL 07/16/2021 12:00:00 AM EDT tablet 84 TAKE ONE TABLET BY MOUTH EVERY DAY TAKE ONE TABLET BY MOUTH EVERY DAY SOLD: 07/17/2021 [facility] 0.15 mg-0.03 mg tablet {21 (desogestrel 0.15 MG / ethinyl estradiol 0.03 MG Oral Tablet) / 7 (inert ingredients 1 MG Oral Tablet) } Pack 07/15/2021 12:00:00 AM EDT active Apri 28 Day Pack [facility] ([facility]) Apri 0.15 mg-0.03 mg tablet {21 (desogestrel 0.15 MG / ethinyl estradiol 0.03 MG Oral Tablet) / 7 (inert ingredients 1 MG Oral Tablet) } Pack 06/17/2021 12:00:00 AM EDT completed Apri 28 Day Pack [facility] ([facility]) Fluconazole 150 MG Oral Tablet fluconazole 150 mg tabl et fluconazole 150 mg tablet 06/17/2021 12:00:00 AM EDT completed 1 po x 1 for fungal infection [facility] ([facility]) NITROFURANTOIN, MACROCRYSTALS 25 MG / Ni trofurantoin, Monohydrate 75 MG Oral Capsule 100 mg NITROFURANTOIN MONOHYD/M-CRYST 06/11/2021 12:00:00 AM EDT ca psule 10 TAKE ONE CAPSULE BY MOUTH EVERY 12 HOURS WITH FOOD FOR 5 DAYS TAKE ONE CAPSULE BY MOUTH EVERY 12 HOURS WITH FOOD FOR 5 DAYS SOLD: 06/11/2021 [facility] NITROFURANTOIN, MACROCRYSTALS 25 MG / Ni trofurantoin, Monohydrate 75 MG Oral Capsule [Macrobid] Macrobid 100 mg capsule Macrobid 100 mg capsule 06/10/2021 12:00:00 AM EDT completed nitrofurantoin, macrocrystals 25 MG / nitrofurantoin, monohydrate 75 MG Oral Capsule [Macrobid] [facility] ([facility]) Metronidazole 500 MG Oral Tablet metronidazole 500 mg tablet metronidazole 500 mg tablet 06/07/2021 12:00:00 AM EDT 1 {tablet} ORAL acti ve take 1 tablet by oral route every 12 hours [facility] ([facility]) Metronidazole 500 MG Oral Tablet METRONIDAZOLE 06/07/2021 12:0 0:00 AM EDT tablet 14 TAKE ONE TABLET BY MOUTH EVERY 1 2 HOURS TAKE ONE TABLET BY MOUTH EVERY 12 HOURS SOLD: 06/07/2021 [facility] 500 mg 05/17/2021 12:00:00 AM EDT tablet 14 TAKE ONE TABLET BY MOUTH TWICE A DAY TAKE ONE TABLET BY MOUTH TWICE A DAY SOLD: 05/17/2021 [facility] 800-160 mg 05/15/2021 12:00:00 AM EDT tablet 14 TAKE ONE TABLET BY MOUTH TWICE A DAY FOR 7 DAYS TAKE ONE TABLET BY MOUTH TWICE A DAY FOR 7 DAYS SOLD: 05/15/2021 [facility] NITROFURANTOIN, MACROCRYSTALS 25 MG / Ni trofurantoin, Monohydrate 75 MG Oral Capsule 100 mg NITROFURANTOIN MONOHYD/M-CRYST 05/13/2021 12:00:00 AM EDT ca psule 14 TAKE ONE CAPSULE BY MOUTH EVERY 12 HOURS FOR 7 DAYS TAKE ONE CAPSULE BY MOUTH EVERY 12 HOURS FOR 7 DAYS SOLD: 05/13/2021 [facility] 150 mg 04/15/2021 12:00:00 AM EDT tablet 1 TAKE ONE TABLET BY MOUTH ONCE DAILY FOR 1 DAY TAKE ONE TABLET BY MOUTH ONCE DAILY FOR 1 DAY SOLD: 04/15/20 21 [facility] 500 mg 04/07/2021 12:00:00 AM EDT capsule 22 TAKE 2 CAPSULES BY MOUTH IMMEDIATELY THEN TAKE 1 CAPSULE BY MOUTH 3 TIMES A DAY TAKE 2 CAPSULES BY MOUTH IMMEDIATELY THEN TAKE 1 CAPSULE BY MOUTH 3 TIMES A DAY SOLD: 04/07/2021 [facility] 875 mg 01/02/2021 12:00:00 AM EDT tablet 20 TAKE ONE TABLET BY MOUTH EVERY 12 HOURS FOR 10 DAYS TAKE ONE TABLET BY MOUTH EVERY 12 HOURS FOR 10 DAYS SO LD: 01/02/2021 [facility] 300-30 mg 10/22/2020 12:00:00 AM EST tablet 15 TAKE ONE TABLET BY MOUTH THREE TIMES A DAY NEEDED FOR PAIN , MAXIMUM DAILY DOSE = THREE TABLETS TAKE ONE TABLET BY MOUTH THREE TIMES A DAY NEEDED FOR PAIN , MAXIMUM DAILY DOSE = THREE TABLETS SOLD: 10/27/2020 [facility] 500 mg 10/20/2020 12:00:00 AM EST capsule 22 TAKE 2 CAPSULES BY MOUTH IMMEDIATELY THEN 1 CAPSULE THREE TIMES A DAY TAKE 2 CAPSULES BY MOUTH IMMEDIATELY THEN 1 CAPSULE THREE TIMES A DAY SOLD: 10/21/2020 [facility] 500 mg 09/15/2020 12:00:00 AM EST capsule 21 TAKE ONE CAPSULE BY MOUTH THREE TIMES A DAY TAKE ONE CAPSULE BY MOUTH THREE TIMES A DAY SOLD: 09/15/2020 [facility] 600 mg 09/15/2020 12:00:00 AM EST tablet 28 TAKE ONE TABLET BY MOUTH FOUR TIMES A DAY TAKE ONE TABLET BY MOUTH FOUR TIMES A DAY SOLD: 09/15/2020 [facility] MetFORMIN HCl ER 500 MG MetFORMIN HCl ER 500 MG 06/26/2020 12:00:00 A M EDT active MetFORMIN HCl ER 500 MG eCW1 ([facility]) Escitalopram 5 MG Oral Tablet ESCITALOPRAM OXALATE 06/04/2020 12 :00:00 AM EDT tablet 30 TAKE ONE TABLET BY MOUTH EVERY D AY TAKE ONE TABLET BY MOUTH EVERY DAY SOLD: 06/09/2020 [facility] Insurance Providers Payer name Policy type / Coverage type Policy ID Covered constitution party ID Covered constitution party's relationship to roberts Policy Roberts Plan Information POMCO [id number] FA2 [id number] [facility] Commercial Insurance Co. [id number] Parent [id number] [facility] Commercial Insurance Co. [id number] Self [id number] Medicaid Dental O [id number] Medicaid S [id number] S [id number] D [facility] Care [facility] P [id number] S [id number] Managed Care [facility] Community Plan S UNAVAILABLE S UNAVAILABLE Medicaid Dental O UNAVAILABLE S UN AVAILABLE Medicaid O UNAVAILABLE S UNAVAILA BLE D Managed Care [facility] O UNAVAILABLE S UNAVAILABLE POMCO [id number] MEDICAID [id number] SP [id number] MEDICAID M [id number] S [id number] [employer] PPO O [id number] S [id number] [employer] PPO P [id number] C [id number] [facility] COMMUNITY PLAN MCDO [id number] SP [id number] [facility] PLAN MCDO [id number] SP [id number] Problems, Conditions, and Diagnoses Code Display Name Description Problem Type Effective Dates Data Source(s) E66.9 [id number] Obesity without seri ous comorbidity, unspecified classification, unspecified obesity type Problem 07/02/2020 12:00:00 AM EDT eCW1 ([facility]) F41.1 [id number] Generalized anxiety disorder Problem 020 12:00:00 AM EDT eCW1 ([facility]) Surgeries/Procedures Procedure Description Date Indications Data Source(s) CVR Ambulatory Care Nurse.Svc. STI / H 06/17/2021 12:00:00 AM EDT - 06/17/2021 12:00:00 AM EDT [facility] ([facility]) CVR Ambulatory Care Nurse.Svc. Other 06/17/2021 12:00:00 AM EDT - 2020 12:00:00 AM EDT [facility] ([facility]) CVR Ambulatory Care Nurse.Svc. Contraceptive 06/17/2021 12 :00:00 AM EDT - 06/17/2021 12:00:00 AM EDT [facility] ([facility]) CVR Med.Svc. Height/Weight 06/17/2021 12 :00:00 AM EDT - 06/17/2021 12:00:00 AM EDT [facility] ([facility]) CVR Blood Pressure 06/17/2021 12:00:00 AM EDT - 2020 12:00:00 AM EDT [facility] ([facility]) HCS Without Test 06/17/2021 12:00:00 AM EDT - 06/17/20 21 12:00:00 AM EDT [facility] ([facility]) FLUCONAZOLE 06/17/2021 12:00:00 AM EDT - 06/17/2021 1 2:00:00 AM EDT [facility] ([facility]) Apri 06/17/2021 12:00:00 AM EDT - 06/17/2021 1 2:00:00 AM EDT [facility] ([facility]) CYTOPATH, C/V, INTERPRET 06/17/2021 12:0 0:00 AM EDT - 06/17/2021 12:00:00 AM EDT [facility] ([facility]) HPV, DNA, AMP PROBE HIGH RISK 06/17/2021 12:00:00 AM EDT - 06/17/2021 12:00:00 AM EDT [facility] ([facility]) CYTOPATH, C/V, THIN LAYER 06/17/2021 12: 00:00 AM EDT - 06/17/2021 12:00:00 AM EDT [facility] ([facility]) PREV VISIT, EST, AGE 18-39 06/17/2021 12 :00:00 AM EDT - 06/17/2021 12:00:00 AM EDT [facility] ([facility]) N.GONORRHOEAE, URINE 06/04/2021 12:00:00 AM EDT - 06/04/2021 12:00:00 AM EDT [facility] ([facility]) CHYLMD TRACH, URINE 06/04/2021 12:00:00 AM EDT - 06/04 12:00:00 AM EDT [facility] ([facility]) CVR Ambulatory Care Nurse.Svc. STI / H 06/04/2021 12:00:00 AM EDT - 06/04/2021 12:00:00 AM EDT [facility] ([facility]) CVR Ambulatory Care Nurse.Svc. Contraceptive 06/04/2021 12 :00:00 AM EDT - 06/04/2021 12:00:00 AM EDT [facility] ([facility]) CVR Med.Svc. Height/Weight 06/04/2021 12 :00:00 AM EDT - 06/04/2021 12:00:00 AM EDT [facility] ([facility]) CVR Blood Pressure 06/04/2021 12:00:00 AM EDT - 2020 12:00:00 AM EDT [facility] ([facility]) HCS Without Test 06/04/2021 12:00:00 AM EDT - 06/04/20 21 12:00:00 AM EDT [facility] ([facility]) OFFICE/OUTPATIENT VISIT, NEW 06/04/2021 12:00:00 AM EDT - 06/04/2021 12:00:00 AM EDT [facility] ([facility]) SMEAR, WET MOUNT, SALINE/INK 06/04/2021 12:00:00 AM EDT - 06/04/2021 12:00:00 AM EDT [facility] ([facility]) ASSAY OF BODY FLUID ACIDITY 06/04/2021 1 2:00:00 AM EDT - 06/04/2021 12:00:00 AM EDT [facility] ([facility]) TRICHOMONAS VAGIN, DIR PROBE 06/04/2021 12:00:00 AM EDT - 06/04/2021 12:00:00 AM EDT [facility] ([facility]) SANCHES VAG, DNA, DIR PROBE 06/04/2021 1 2:00:00 AM EDT - 06/04/2021 12:00:00 AM EDT [facility] ([facility]) SHARMILA, DNA, DIR PROBE 06/04/2021 12:00 :00 AM EDT - 06/04/2021 12:00:00 AM EDT [facility] ([facility]) URINE CULTURE/COLONY COUNT 06/04/2021 12 :00:00 AM EDT - 06/04/2021 12:00:00 AM EDT [facility] ([facility]) N.GONORRHOEAE, SWAB 06/04/2021 12:00:00 AM EDT - 06/04 12:00:00 AM EDT [facility] ([facility]) CHYLMD TRACH, SWAB 06/04/2021 12:00:00 AM EDT - 2020 12:00:00 AM EDT [facility] ([facility]) Results ID Date Data Source [id number] 07/11/2021 06:15:00 PM EDT [facility] Name Value Range Interpretation Code Description Data Sandy rce(s) Supporting Document(s) SARS-CoV-2 RNA Resp Ql ALIDA+probe DETECTED [facility] This lab was ordered by CARLOS rai and reported by CARLOS Oneill. ID Date Data Source [id number] 06/04/2021 08:35:24 AM EDT [facility] ([facility]) Name Value Range Interpretation Code Description Data Sandy rce(s) Supporting Document(s) Hyphae/Sharmila: no; Budding yeast: no; Trich: no; Clue cells: no; WBCs: no; Amine/Whiff test: negative; pH: 5.5 Wet Prep [facility] ([facility]) ID Date Data Source [id number] 06/04/2021 08:35:06 AM EDT [facility] ([facility]) Name Value Range Interpretation Code Description Data Sandy rce(s) Supporting Document(s) pH: 5.5. Vaginal pH [facility] ([facility]) Procedure Social History Code Duration Value Status Description Data Source(s ) Smoking 07/15/2021 12:00:00 AM EDT Never smoker completed Never s moker [facility] ([facility]) Smoking 06/26/2020 12:00:00 AM EDT Never Smoker completed Never S aniket eCW1 ([facility]) Vital Signs ID Date Data Source UNK Name Value Range Interpretation Code Description Data Source(s) Body height 157.48 cm 157.48 cm [facility]) Body weight 142.609 kg 142.609 kg [facility] ([facility]) Systolic blood pressure 128 mm[Hg] 128 mm[Hg] N [facility] ([facility]) Diastolic blood pressure 86 mm[Hg] 86 mm[Hg] [facility] ([facility]) Body mass index (BMI) [Ratio] 57.50 kg/m2 Overweight 57.50 kg/m2 [facility] ([facility]) Body height 157.48 cm 157.48 cm [facility] [facility] Body weight 142.882 kg 142.882 kg NextGen ([facility]) Body mass index (BMI) [Ratio] 57.61 kg/m2 Overweight 57.61 kg/m2 NextGen ([facility]) Systolic blood pressure 138 mm[Hg] 138 mm[Hg] N extGen ([facility]) Diastolic blood pressure 82 mm[Hg] 82 mm[Hg] NextGen ([facility]) Body weight 333.6 [lb_av] 333.6 [lb_av] eCW1 ([facility]) Body height 62 [in_i] 62 [in_i] eCW1 ([facility]) Body mass index (BMI) [Ratio] 61.01 kg/m2 61.01 kg/m2 W1 ([facility]) Heart rate 88 /min 88 /min eCW1 ([facility] hospital) Respiratory rate 18 /min 18 /min W1 ([facility]) Body temperature 97.3 [degF] 97.3 [degF] eCW1 ( [facility]) Systolic blood pressure 118 mm[Hg] 118 mm[Hg] e CW1 ([facility]) Diastolic blood pressure 64 mm[Hg] 64 mm[Hg] eCW1 ([facility]) Patient Treatment Plan of Care Planned Activity Planned Date Details Description Data Source (s) Apri 0.15 mg-0.03 mg tablet 07/15/2021 12:00:00 AM EDT NextGen ([facility]) Apri 0.15 mg-0.03 mg tablet 06/17/2021 12:00:00 AM EDT NextGen ([facility]) Fluconazole 150 MG Oral Tablet 06/17/2021 12:00:00 AM EDT NextGen ([facility]) NITROFURANTOIN, MACROCRYSTALS 25 MG / Ni trofurantoin, Monohydrate 75 MG Oral Capsule [Macrobid] 06/10/2021 12:00:00 AM EDT Ne xtGen ([facility]) Metronidazole 500 MG Oral Tablet 06/07/2021 12:00:00 AM EDT NextGen ([facility]) MetFORMIN HCl ER 500 MG 06/26/2020 12:00:00 AM EDT eCW1 ([facility])
--- OUTSIDE RECORDS SUMMARY | 2021-07-19 11:10 | CCD | Continuity of Care Document ---
Author Author [facility] Organization [facility] Address [address] [place] [address] Phone Care Team Providers Care Office Rental Clerk Name Role Phone Paige Hooper NP Unavailable Unavailable Allergies, Adverse Reactions, Alerts Substance Reaction Status Criticality No Known Allergies Active No Information Medications Medication Instructions Dosage Effective Dates (start - stop) Sta tus Comments Apri 0.15 mg-0.03 mg tablet 1 PO daily - Active Problems Condition Effective Dates (start - stop) Clinical Status C omments Encounter for oth general cnsl and advice on contraception Encounter for initial prescription of contraceptive pills 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 [address] [place], [place], [id number], [place]. tel:[phone] [facility], [address] [place], [place], [id number], [place] tel:[phone] [facility] [place] Encounter for oth g eneral cnsl and advice on contraceptionEncounter for initial prescription of contraceptive pillsEncntr for it systems analyst consultant exam (general) (routine) w abnormal findingsHuman immunodeficiency virus [HIV] counselingOther sex counselingCandidiasis of vulva and vaginaUrgency of urinationOther specified noninflammatory disorders of vaginaAbnormal uterine and vaginal bleeding, unspecified Rufus Godinez. [address] [place], [place], [id number], [place]. tel:[phone] Referring Provider: Paige Hooper, [address] [place], [place], [id number]. tel:[phone] [facility], [address] [place] [address], [id number], [place] tel:[phone] [facility] [place] Acute cystitis without hem aturia Comfort Priest. [address] [place], [place], [id number], [place]. tel:[phone] [facility], [address] [place], [place], [id number], [place] tel:[phone] [facility] [place] Acute vaginitis Dwello Kianna Priest. [address] [place], [place], [id number], [place]. tel:[phone] [facility], [address] [place] [address], [id number], [place] tel:[phone] [facility] [place] Human immunodeficie ncy virus [HIV] counselingAbnormal uterine and vaginal bleeding, unspecifiedOther sex counselingEncntr screen for infections w sexl mode of transmissEncounter for oth general cnsl and advice on contraceptionFrequency of micturition Comfort Priest. [address] [place] [address], [id number], . tel:[phone] Referring Provider: Kianna Moyer, [address] [place] [address], [id number]. tel:[phone] [facility], [address] [place], [place], [id number], [place] tel:[phone] [facility] [place] Encounter for pregn soni test, result negativeEncounter for initial prescription of injectable contracepEncounter for oth general cnsl and advice on contraceptionHuman immunodeficiency virus [HIV] counseling King Etelvina. [address] [place] [address], [id number]. tel:[phone] Referring Provider: Etelvina Yoder, [address] [place], [place], [id number]. tel:[phone] Family History Family Member Diagnosis Age At [...] Information Payers Payer name Insurance type Covered constitution party ID Authorization(s ) [facility] CI [id number] Social History Type Description Quantity Date Captured [...] Date No Information Medical Equipment Description Device [place] Device Identifier Effective Mark es (start - stop) Status No Information Mental Status Date Cognitive Assessment No Information Health Concerns Observation Date No Information Concern Status Date No Information Physical Examination Exam Findings Details No Information
--- OUTSIDE RECORDS SUMMARY | 2021-07-19 11:10 | CCD | Continuity of Care Document ---
Author Author [facility] Organization [facility] Address Unknown Phone Unavailable Care Team Providers Care Cigar Head Pegger Name Role Phone Esperanza Ariza MD Unavailable Unavailable Allergies, Adverse Reactions, Alerts Substance Reaction Status Criticality No Known Allergies Active No Information Medications Medication Instructions Dosage Effective Dates (start - stop) Sta tus Comments Apri 0.15 mg-0.03 mg tablet 1 PO daily - Active Apri 0.15 mg-0.03 mg tablet 1 PO daily - No Longer Active Problems Condition Effective Dates (start - stop) Clinical Status C omments Encounter for oth general cnsl and advice on contraception Encounter for initial prescription of contraceptive pills 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 [address] [place], [place], [id number], . tel:[phone] [facility], [address] [place] [address], [id number], [place] tel:[phone] [facility] [place] Encounter for oth g eneral cnsl and advice on contraceptionEncounter for initial prescription of contraceptive pillsEncntr for nurse obgyn exam (general) (routine) w abnormal findingsHuman immunodeficiency virus [HIV] counselingOther sex counselingCandidiasis of vulva and vaginaUrgency of urinationOther specified noninflammatory disorders of vaginaAbnormal uterine and vaginal bleeding, unspecified Rufus Godinez. [address] [place] [address], [id number], . tel:[phone] Referring Provider: Paige Hooper, [address] [place] [address], [id number]. tel:[phone] [facility], [address] [place] [address], [id number], [place] tel:[phone] [facility] [place] Acute cystitis without hem aturia Comfort Priest. [address] [place], [place], [id number], . tel:[phone] [facility], [address] [place] [address], [id number], [place] tel:[phone] [facility] [place] Acute vaginitis Keyonnao Kianna Priest. [address] [place], [place], [id number], [place]. tel:[phone] [facility], [address] [place] [address], [id number], [place] tel:[phone] [facility] [place] Human immunodeficie ncy virus [HIV] counselingAbnormal uterine and vaginal bleeding, unspecifiedOther sex counselingEncntr screen for infections w sexl mode of transmissEncounter for oth general cnsl and advice on contraceptionFrequency of micturition Comfort Hutchison Zayda. [address] [place], [place], [id number], . tel:[phone] Referring Provider: Kianna Moyer, [address] [place] [address], [id number]. tel:[phone] [facility], [address] [place], [place], [id number], [place] tel:[phone] [facility] [place] Encounter for pregn soni test, result negativeEncounter for initial prescription of injectable contracepEncounter for oth general cnsl and advice on contraceptionHuman immunodeficiency virus [HIV] counseling King Etelvina. [address] [place], [place], [id number]. tel:[phone] Referring Provider: Etelvina Yoder, [address] [place], [place], [id number]. tel:[phone] Family History Family Member Diagnosis Age At [...] Insurance type Covered libertarian ID Authorization(s ) [facility] CI [id number] Social History Type Description Quantity Date Captured [...] Date No Information Medical Equipment Description Device [place] Device Identifier Effective Mark es (start - stop) Status No Information Mental Status Date Cognitive Assessment No Information Health Concerns Observation Date No Information Concern Status Date No Information Physical Examination Exam Findings Details No Information
--- OUTSIDE RECORDS SUMMARY | 2021-07-19 11:10 | CCD | Continuity of Care Document ---
Author Author [facility] Organization [facility] Address Unknown Phone Unavailable Care Team Providers Care Motor And Controls Tester Name Role Phone Esperanza Ariaz MD Unavailable Unavailable Allergies, Adverse Reactions, Alerts Substance Reaction Status Criticality No Known Allergies Active No Information Medications Medication Instructions Dosage Effective Dates (start - stop) Sta tus Comments Apri 0.15 mg-0.03 mg tablet 1 PO daily - Active Problems Condition Effective Dates (start - stop) Clinical Status C omments Encounter for ot general cnsl and advice on contraception Encounter for initial prescription of contraceptive pills 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 [address] [place], [place], [id number], . tel:[phone] [facility], [address] [place], [place], [id number], [place] tel:[phone] [facility] [place] Encounter for oth g eneral cnsl and advice on contraceptionEncounter for initial prescription of contraceptive pillsEncntr for cupola charger exam (general) (routine) w abnormal findingsHuman immunodeficiency virus [HIV] counselingOther sex counselingCandidiasis of vulva and vaginaUrgency of urinationOther specified noninflammatory disorders of vaginaAbnormal uterine and vaginal bleeding, unspecified Rufus Godinez. [address] [place] [address], [id number], [place]. tel:[phone] Referring Provider: Paige Hooper, [address] [place] [address], [id number]. tel:[phone] [facility], [address] [place] [address], [id number], [place] tel:[phone] [facility] [place] Acute cystitis without hem aturia Keyonnao Kianna Priest. [address] [place], [place], [id number], [place]. tel:[phone] [facility], [address] [place] [address], [id number], [place] tel:[phone] [facility] [place] Acute vaginitis Dwello Kianna Priest. [address] [place], [place], [id number], [place]. tel:[phone] [facility], [address] [place] [address], [id number], [place] tel:[phone] [facility] [place] Human immunodeficie ncy virus [HIV] counselingAbnormal uterine and vaginal bleeding, unspecifiedOther sex counselingEncntr screen for infections w sexl mode of transmissEncounter for oth general cnsl and advice on contraceptionFrequency of micturition Comfort Laststephy KentZayda. [address] [place] [address], [id number], . tel:[phone] Referring Provider: Kianna Moyer, [address] [place] [address], [id number]. tel:[phone] [facility], [address] [place], [place], [id number], [place] tel:[phone] [facility] [place] Encounter for pregn soni test, result negativeEncounter for initial prescription of injectable contracepEncounter for oth general cnsl and advice on contraceptionHuman immunodeficiency virus [HIV] counseling King Etelvina. [address] [place], [place], [id number]. tel:[phone] Referring Provider: Etelvina Yoder, [address] [place], [place], [id number]. tel:[phone] Family History Family Member Diagnosis Age At [...] Information Payers Payer name Insurance type Covered democrat ID Authorization(s ) [facility] CI [id number] Social History Type Description Quantity Date Captured [...] Date No Information Medical Equipment Description Device [place] Device Identifier Effective Mark es (start - stop) Status No Information Mental Status Date Cognitive Assessment No Information Health Concerns Observation Date No Information Concern Status Date No Information Physical Examination Exam Findings Details No Information
[2021-07-19] MEDS ORDERED: NITR100C2 PO (11:23)
[2021-07-19] MEDS ORDERED: ISIB1TAB PO (15:28)
--- OUTSIDE RECORDS SUMMARY | 2021-07-19 15:52 | CCD ---
Author Author [facility] Organization [facility] Address Unknown Phone Unavailable Care Team Providers Care Cutter Barrel Drum Name Role Phone Farhat JAIN DHRUV Unavailable [phone] Farhat JAIN DHRUV Unavailable [phone] Farhat JAIN DHRUV Unavailable [phone] Farhat JAIN DHRUV Unavailable [phone] Farhat JAIN DHRUV Unavailable [phone] Farhat JAIN DHRUV Unavailable [phone] CRISTOBAL, A. MANAGER OF SECURITY DHRUV Unavailable [phone] CRISTOBAL, A. MANAGER OF SECURITY DHRUV Unavailable [phone] CRISTOBAL, A. MANAGER OF SECURITY DHRUV Unavailable [phone] CRISTOBAL, A. MANAGER OF SECURITY DHRUV Unavailable [phone] CRISTOBAL, A. MANAGER OF SECURITY DHRUV Unavailable [phone] CRISTOBAL, A. MANAGER OF SECURITY DHRUV Unavailable [phone] CRISTOBAL, A. MANAGER OF SECURITY DHRUV Unavailable [phone] CRISTOBAL, A. MANAGER OF SECURITY DHRUV Unavailable [phone] CRISTOBAL, A. MANAGER OF SECURITY DHRUV Unavailable [phone] CRISTOBAL, A. MANAGER OF SECURITY DHRUV Unavailable [phone] Green PRIMARY CARE PHYSICIAN PRIMARY CARE PHYSICIAN, Paige Unavailable Unavailable Green PRIMARY CARE PHYSICIAN PRIMARY CARE PHYSICIAN, Paige Unavailable Unavailable Green PRIMARY CARE PHYSICIAN PRIMARY CARE PHYSICIAN, Paige Unavailable Unavailable Green PRIMARY CARE PHYSICIAN PRIMARY CARE PHYSICIAN, Paige Unavailable Unavailable Green PRIMARY CARE PHYSICIAN PRIMARY CARE PHYSICIAN, Paige Unavailable Unavailable To, Haroon Mata MD [...] Haroon Mata MD Unavailable Unavailable To, Haroon Maat MD Unavailable Unavailable To, Haroon Mata MD [...] is protected by Article 27-F of the [facility] Public Health law. If you continue you may have access to information: Regarding HIV / AIDS; Provided by facilities licensed or operated by the [facility] Office of Mental Health; or Provided by the [facility] Office for People With Developmental Disabilities. If such information is present, then the following [facility] mandated warning applies: This information has [...] law may result in a fine or assisted sentence or both. A general authorization for the release of medical or other information is NOT sufficient authorization for further disc losure. Family History Family Member Name Family Member Gender Family Member Status Date o f Status Description Data Source(s) Unknown Male Diagnosis 07/15/2016 12:00:00 AM EDT [facility] ([facility]) Unknown Male Diagnosis 07/15/2016 12:00:00 AM EDT [facility] ([facility]) Encounters Encounter Providers Location Date Indications Data Source(s ) Attender: Esperanza Wahl 12/2020 12:24:00 PM EDT - 07/15/2021 12:24:00 PM EDT [facility] ([facility]) Outpatient Attender: DHRUV JAIN 06/13 06:00:45 PM EDT - 07/11/2021 06:23:31 PM EDT [facility] ([facility] ) Attender: Paige Hooper NP PRIMARY CARE PHYSICIAN VALORIE Wahl 1 07:42:00 AM EDT - 06/23/2021 07:42:00 AM EDT [facility] ([facility]) Attender: Esperanza Wahl 08/2021 08:50:00 AM EDT - 06/22/2021 08:50:00 AM EDT [facility] ([facility]) PREV VISIT, EST, AGE 18-39Outpatient Attender: Paige Hooper NP PRIMARY CARE PHYSICIAN VALORIE Wahl 06/17/2021 01:30:00 PM EDT - 06/17/2021 01:30:00 PM ED T Abnormal uterine and vaginal bleeding, unspecifiedOther specified noninflammatory disorders of vaginaUrgency of urinationCandidiasis of vulva and vaginaOther sex counselingHuman immunodeficiency virus [HIV] counseling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Encounter for initial prescription of contraceptive pillsEncounter for oth general cnsl and advice on contraception [facility] ([facility]) Abnormal uterine and vaginal bleeding, u nspecified Other specified noninflammatory disorder s of vagina Urgency of urination Candidiasis of vulva and vagina Other sex counseling Human immunodeficiency virus [HIV] couns eling 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 Encounter for initial prescription of co ntraceptive pills Encounter for oth general cnsl and advic e on contraception Attender: Kianna Wahl 09/2020 07:19:00 AM EDT - 06/11/2021 07:19:00 AM EDT [facility] ([facility]) Attender: Kianna Wahl 06:47:00 PM EDT - 06/10/2021 06:47:00 PM EDT Acute cystitis without hematuria [facility] ([facility]) Acute cystitis without hematuria Attender: Kianna Wahl 08:54:00 AM EDT - 06/07/2021 08:54:00 AM EDT Acute vaginitis [facility] ([facility]) Acute vaginitis OutpatientOFFICE/OUTPATIENT VISIT, NEW Attender: Kianna SALVADOR [facility] [place] 06/04/2021 07:30:00 AM EDT - 06/04/2021 07:30:00 AM ED T Frequency of micturitionEncounter for oth general cnsl and advice on contraceptionEncntr screen for infections w sexl mode of transmissOther sex counselingAbnormal uterine and vaginal bleeding, unspecifiedHuman immunodeficiency virus [HIV] counseling [facility] ([facility]) Frequency of micturition Encounter for oth general cnsl and advic e on contraception Encntr screen for infections w sexl mode of transmiss Other sex counseling Abnormal uterine and vaginal bleeding, u nspecified Human immunodeficiency virus [HIV] couns [facility] Outpatient [address] [place] [address] 06/26/2020 12:00:00 AM EDT eC (On license of [facility]) Medications Medication Brand Name Start Date Product [...] Day Pack [facility] ([facility]) Apri 0.15 mg-0.03 mg tablet {21 (desogestrel 0.15 MG / ethinyl estradiol 0.03 MG Oral Tablet) / 7 (inert ingredients 1 MG Oral Tablet) } Pack 06/17/2021 12:00:00 AM EDT completed Apri 28 Day Pack [facility] ([facility]) Fluconazole 150 MG Oral Tablet fluconazole 150 mg tabl et fluconazole 150 mg tablet 06/17/2021 12:00:00 AM EDT completed 1 po x 1 for fungal infection [facility] ([facility]) NITROFURANTOIN, MACROCRYSTALS 25 MG / Ni trofurantoin, [...] 75 MG Oral Capsule [Macrobid] [facility] ([facility]) Metronidazole 500 MG Oral Tablet metronidazole 500 mg tablet metronidazole 500 mg tablet 06/07/2021 12:00:00 AM EDT 1 {tablet} ORAL acti ve take 1 tablet by oral route every 12 hours [facility] ([facility]) Metronidazole 500 MG Oral Tablet METRONIDAZOLE 06/07/2021 [...] MOUTH 3 TIMES A DAY SOLD: 04/07/2021 [facility] 875 mg 01/02/2021 12:00:00 AM EDT [...] CAPSULE THREE TIMES A DAY SOLD: 10/21/2020 [facility] 500 mg 09/15/2020 12:00:00 AM EST capsule 21 TAKE ONE CAPSULE BY MOUTH THREE TIMES A DAY TAKE ONE CAPSULE BY MOUTH THREE TIMES A DAY SOLD: 09/15/2020 [facility] 600 mg 09/15/2020 12:00:00 AM EST tablet 28 TAKE ONE TABLET BY MOUTH FOUR TIMES A DAY TAKE ONE TABLET BY MOUTH FOUR TIMES A DAY SOLD: 09/15/2020 [facility] MetFORMIN HCl ER 500 MG MetFORMIN HCl ER 500 MG 06/26/2020 12:00:00 A M EDT active MetFORMIN HCl ER 500 MG eCW1 ([facility]) Escitalopram 5 MG Oral Tablet ESCITALOPRAM OXALATE 06/04/2020 12 :00:00 AM EDT tablet 30 TAKE ONE TABLET BY MOUTH EVERY D AY TAKE ONE TABLET BY MOUTH EVERY DAY SOLD: 06/09/2020 [facility] Insurance Providers Payer name Policy type / Coverage type Policy ID Covered democrat ID Covered democrat's relationship to roberts Policy Roberts Plan Information [employer] [id number] FA2 [id number] [facility] Commercial Insurance Co. [id number] Parent [id number] [facility] Commercial Insurance Co. [id number] Self [id number] Medicaid S [id number] S [id number] D [facility] [place] [facility] P [id number] S [id number] [facility] [place] [facility] - [facility] Community Plan S UNAVAILABLE S UNAVAILABLE Medicaid Dental O UNAVAILABLE S UN AVAILABLE Medicaid O UNAVAILABLE S UNAVAILA BLE D [facility] [place] [facility] O UNAVAILABLE S UNAVAILABLE [employer] [id number] FA2 [id number] MEDICAID [id number] SP [id number] MEDICAID M [id number] S [id number] [employer] PPO O [id number] S [id number] [facility] PLAN MCDHMO [id number] SP [id number] [employer] PPO P [id number] C [id number] [facility] COMM[facility] PLAN MCDO [id number] SP [id number] Medicaid Dental O [id number] S [id number] Problems, Conditions, and Diagnoses Code Display Name Description Problem Type Effective Dates Data Source(s) E66.9 [id number] Obesity without seri ous comorbidity, unspecified classification, unspecified obesity type Problem 07/02/2020 12:00:00 AM EDT eCW1 ([facility]) F41.1 [id number] Generalized anxiety disorder Problem 020 12:00:00 AM EDT eCW1 ([facility]) Surgeries/Procedures Procedure Description Date Indications Data Source(s) CVR Energy Assistant.Svc. STI / H 06/17/2021 12:00:00 AM EDT - 06/17/2021 12:00:00 AM EDT [facility] ([facility]) CVR Energy Assistant.Svc. Other 06/17/2021 12:00:00 AM EDT - 2020 12:00:00 AM EDT [facility] ([facility]) CVR Energy Assistant.Svc. Contraceptive 06/17/2021 12 :00:00 AM EDT - 06/17/2021 12:00:00 AM EDT [facility] ([facility]) CVR Med.Svc. Height/Weight 06/17/2021 12 :00:00 AM EDT - 06/17/2021 12:00:00 AM EDT [facility] ([facility]) CVR Blood Pressure 06/17/2021 12:00:00 AM EDT - 2020 12:00:00 AM EDT [facility] ([facility]) HCS Without Test 06/17/2021 12:00:00 AM EDT - 06/17/20 21 12:00:00 AM EDT [facility] ([facility]) FLUCONAZOLE 06/17/2021 12:00:00 AM EDT - 06/17/2021 1 2:00:00 AM EDT [facility] ([facility]) Apri 06/17/2021 12:00:00 AM EDT - 06/17/2021 1 2:00:00 AM EDT [facility] ([facility]) CYTOPATH, C/V, INTERPRET 06/17/2021 12:0 0:00 AM EDT - 06/17/2021 12:00:00 AM EDT [facility] ([facility]) HPV, DNA, AMP PROBE HIGH RISK 06/17/2021 12:00:00 AM EDT - 06/17/2021 12:00:00 AM EDT [facility] ([facility]) CYTOPATH, C/V, THIN LAYER 06/17/2021 12: 00:00 AM EDT - 06/17/2021 12:00:00 AM EDT [facility] ([facility]) PREV VISIT, EST, AGE 18-39 06/17/2021 12 :00:00 AM EDT - 06/17/2021 12:00:00 AM EDT [facility] ([facility]) N.GONORRHOEAE, URINE 06/04/2021 12:00:00 AM EDT - 06/04/2021 12:00:00 AM EDT [facility] ([facility]) CHYLMD TRACH, URINE 06/04/2021 12:00:00 AM EDT - 06/04 12:00:00 AM EDT [facility] ([facility]) CVR Energy Assistant.Svc. STI / H 06/04/2021 12:00:00 AM EDT - 06/04/2021 12:00:00 AM EDT [facility] ([facility]) CVR Energy Assistant.Svc. Contraceptive 06/04/2021 12 :00:00 AM EDT - 06/04/2021 12:00:00 AM EDT [facility] ([facility]) CVR Med.Svc. Height/Weight 06/04/2021 12 :00:00 AM EDT - 06/04/2021 12:00:00 AM EDT [facility] ([facility]) CVR Blood Pressure 06/04/2021 12:00:00 AM EDT - 2020 12:00:00 AM EDT [facility] ([facility]) HCS Without Test 06/04/2021 12:00:00 AM EDT - 06/04/20 21 12:00:00 AM EDT [facility] ([facility]) OFFICE/OUTPATIENT VISIT, NEW 06/04/2021 12:00:00 AM EDT - 06/04/2021 12:00:00 AM EDT [facility] ([facility]) SMEAR, WET MOUNT, SALINE/INK 06/04/2021 12:00:00 AM EDT - 06/04/2021 12:00:00 AM EDT [facility] ([facility]) ASSAY OF BODY FLUID ACIDITY 06/04/2021 1 2:00:00 AM EDT - 06/04/2021 12:00:00 AM EDT [facility] ([facility]) TRICHOMONAS VAGIN, DIR PROBE 06/04/2021 12:00:00 AM EDT - 06/04/2021 12:00:00 AM EDT [facility] ([facility]) SANCHES VAG, DNA, DIR PROBE 06/04/2021 1 2:00:00 AM EDT - 06/04/2021 12:00:00 AM EDT [facility] ([facility]) SHARMILA, DNA, DIR PROBE 06/04/2021 12:00 :00 AM EDT - 06/04/2021 12:00:00 AM EDT [facility] ([facility]) URINE CULTURE/COLONY COUNT 06/04/2021 12 :00:00 AM EDT - 06/04/2021 12:00:00 AM EDT [facility] ([facility]) N.GONORRHOEAE, SWAB 06/04/2021 12:00:00 AM EDT - 06/04 12:00:00 AM EDT [facility] ([facility]) CHYLMD TRACH, SWAB 06/04/2021 12:00:00 AM EDT - 2020 12:00:00 AM EDT [facility] ([facility]) Results ID Date Data Source [id number] 07/11/2021 06:15:00 PM EDT [facility] Name Value Range Interpretation Code Description Data Sandy rce(s) Supporting Document(s) SARS-CoV-2 RNA Resp Ql ALIDA+probe DETECTED [facility] This lab was ordered by CARLOS rai and reported by CARLOS Oneill. ID Date Data Source [id number] 06/04/2021 08:35:24 AM EDT [facility] ([facility]) Name Value Range Interpretation Code Description Data Sandy rce(s) Supporting Document(s) Hyphae/Sharmila: no; Budding yeast: no; Trich: no; Clue cells: no; WBCs: no; Amine/Whiff test: negative; pH: 5.5 Wet Prep [facility] ([facility]) ID Date Data Source [id number] 06/04/2021 08:35:06 AM EDT [facility] ([facility]) Name Value Range Interpretation Code Description Data Sandy rce(s) Supporting Document(s) pH: 5.5. Vaginal pH [facility] ([facility]) Procedure Social History Code Duration Value Status Description Data Source(s ) Smoking 07/15/2021 12:00:00 AM EDT Never smoker completed Never s radhaker [facility] ([facility]) Smoking 06/26/2020 12:00:00 AM EDT Never Smoker completed Never S aniket eCW1 ([facility]) Vital Signs ID Date Data Source UNK Name Value Range Interpretation Code Description Data Source(s) Body height 157.48 cm 157.48 cm [facility]) Body weight 142.609 kg 142.609 kg [facility] ([facility]) Systolic blood pressure 128 mm[Hg] 128 mm[Hg] N [facility] ([facility]) Diastolic blood pressure 86 mm[Hg] 86 mm[Hg] [facility] ([facility]) Body mass index (BMI) [Ratio] 57.50 kg/m2 Overweight 57.50 kg/m2 [facility] ([facility]) Body height 157.48 cm 157.48 cm [facility] ([facility]) Body weight 142.882 kg 142.882 kg [facility] ([facility]) Systolic blood pressure 138 mm[Hg] 138 mm[Hg] N [facility] ([facility]) Diastolic blood pressure 82 mm[Hg] 82 mm[Hg] [facility] ([facility]) Body mass index (BMI) [Ratio] 57.61 kg/m2 Overweight 57.61 kg/m2 [facility] ([facility]) Body weight 333.6 [lb_av] 333.6 [lb_av] eCW1 ([facility]) Body height 62 [in_i] 62 [in_i] eCW1 ([facility]) Body mass index (BMI) [Ratio] 61.01 kg/m2 61.01 kg/m2 eCW1 ([facility]) Heart rate 88 /min 88 /min eCW1 ([facility]) Respiratory rate 18 /min 18 /min eCW1 ([facility]) Body temperature 97.3 [degF] 97.3 [degF] eCW1 ( [facility]) Systolic blood pressure 118 mm[Hg] 118 mm[Hg] e CW1 ([facility]) Diastolic blood pressure 64 mm[Hg] 64 mm[Hg] eCW1 ([facility]) Patient Treatment Plan of Care Planned Activity Planned Date Details Description Data Source (s) Apri 0.15 mg-0.03 mg tablet 07/15/2021 12:00:00 AM EDT [facility] ([facility]) Apri 0.15 mg-0.03 mg tablet 06/17/2021 12:00:00 AM EDT [facility] ([facility]) Fluconazole 150 MG Oral Tablet 06/17/2021 12:00:00 AM EDT [facility] ([facility]) NITROFURANTOIN, MACROCRYSTALS 25 MG / Ni trofurantoin, Monohydrate 75 MG Oral Capsule [Macrobid] 06/10/2021 12:00:00 AM EDT Ne xtGen ([facility]) Metronidazole 500 MG Oral Tablet 06/07/2021 12:00:00 AM EDT [facility] ([facility]) MetFORMIN HCl ER 500 MG 06/26/2020 12:00:00 AM EDT eCW1 ([facility])
--- NOTE | 2021-07-19 16:20 | REP ---
INDICATION: + SOB. COMPARISON: Lung windows from CT abdomen 05/16/2021 TECHNIQUE: AP portable seated FINDINGS: Lungs are adequately inflated are patchy interstitial infiltrates bilaterally in the mid and peripheral lung zones, left slightly greater than right. No pleural effusion identified. No air bronchograms seen. Heart size not grossly enlarged. The aorta is normal. Airway intact. Bones without acute finding. No free air under the diaphragm. IMPRESSION: Patchy bilateral mid and peripheral lung zone interstitial infiltrates without air bronchograms left slightly greater than right. Findings could certainly represent COVID pneumonia versus other. No gross effusion or other acute finding. <Electronically signed by Ajay Oropeza > 07/19/21 [id number]
[2021-07-19 16:30] LABS: ABG HCO3 24.5 MEQ/L (22.0-26.0); ABG O2 SATURATION 94.5 % (95.0-99.0); ABG PARTIAL PRESSURE CO2 35.2 mmHg (35.0-45.0); ABG PARTIAL PRESSURE O2 71.5 mmHg (75.0-100.0); ABG STANDARD HCO3 25.3 MEQ/L (22.0-26.0); ABG TOTAL CO2 25.6 MEQ/L (22.0-29.0)
[2021-07-19] MEDS ORDERED: HOME MED LIST COMPLETE! XX SCH (17:10)
[2021-07-19 17:11] LABS: BASO % 0.5 % (0.0-1.0); EOS % 0.3 % (0.0-3.0); HEMOGLOBIN 12.6 g/dl (12.0-15.5); LYMPH # 2.1 10^3/uL (1.5-5.0); LYMPH % 34.2 % (24.0-44.0); MEAN CORPUSCULAR HGB CONC 33.2 g/dl (32.0-36.5); MEAN CORPUSCULAR VOLUME 84.4 fl (80.0-96.0); MONO # 0.4 10^3/uL (0.0-0.8); MONO % 6.1 % (2.0-8.0); NEUTROPHILS # 3.4 10^3/uL (1.5-8.5); NEUTROPHILS % 56.1 % (36.0-66.0); PLATELET COUNT, AUTOMATED 227 10^3/uL (150-450)
[2021-07-19 17:36] LABS: ERYTHROCYTE SEDIMENTATION RATE 45 mm/hr (0-20)
[2021-07-19 17:42] LABS: C REACTIVE PROTEIN QUANTITATIV 3.23 MG/DL (0.00-0.30); CK-MB VALUE MASS 3.6 NG/ML (<3.6); CPK CREATINE PHOSPHOKINASE 1266 U/L (26-192); MB/CK RELATIVE INDEX 0.28 (< OR =4); TROPONIN I < 0.02 NG/ML (< 0.10)
[2021-07-19] MEDS ORDERED: NS 1,000 ML IV ONE (18:20)
[2021-07-19 18:21] LABS: BLOOD UREA NITROGEN 4 MG/DL (7-18); CREATININE FOR GFR 0.51 MG/DL (0.55-1.30); GLOMERULAR FILTRATION RATE > 60.0 (>60); GLUCOSE, FASTING 118 MG/DL (70-100)
[2021-07-19 18:22] LABS: CALCIUM LEVEL 8.6 MG/DL (8.5-10.1); CARBON DIOXIDE LEVEL 24 MEQ/L (21-32); CHLORIDE LEVEL 105 MEQ/L (98-107); POTASSIUM SERUM 3.7 MEQ/L (3.5-5.1); SODIUM LEVEL 139 MEQ/L (136-145)
--- OUTSIDE RECORDS SUMMARY | 2021-07-19 18:24 | CCD ---
Author Author [facility] Organization [facility] Address Unknown Phone Unavailable Care Team Providers Care Kitchen Steward Name Role Phone Farhat JAIN DHRUV Unavailable [phone] Farhat JAIN DHRUV Unavailable [phone] Farhat JAIN DHRUV Unavailable [phone] Farhat JAIN DHRUV Unavailable [phone] Farhat JAIN DHRUV Unavailable [phone] Farhat JAIN DHRUV Unavailable [phone] CRISTOBAL, A. EDI COORDINATOR DHRUV Unavailable [phone] CRISTOBAL, A. EDI COORDINATOR DHRUV Unavailable [phone] CRISTOBAL, A. EDI COORDINATOR DHRUV Unavailable [phone] CRISTOBAL, A. EDI COORDINATOR DHRUV Unavailable [phone] CRISTOBAL, A. EDI COORDINATOR DHRUV Unavailable [phone] CRISTOBAL, A. EDI COORDINATOR DHRUV Unavailable [phone] CRISTOBAL, A. EDI COORDINATOR DHRUV Unavailable [phone] CRISTOBAL, A. EDI COORDINATOR DHRUV Unavailable [phone] CRISTOBAL, A. EDI COORDINATOR DHRUV Unavailable [phone] CRISTOBAL, A. EDI COORDINATOR DHRUV Unavailable [phone] Green MANAGER OF SECURITY MANAGER OF SECURITY, Paige Unavailable Unavailable Green MANAGER OF SECURITY MANAGER OF SECURITY, Paige Unavailable Unavailable Green MANAGER OF SECURITY MANAGER OF SECURITY, Paige Unavailable Unavailable Green MANAGER OF SECURITY MANAGER OF SECURITY, Paige Unavailable Unavailable Green MANAGER OF SECURITY MANAGER OF SECURITY, Paige Unavailable Unavailable To, Haroon Mata MD [...] is protected by Article 27-F of the [facility] Public Health law. If you continue you may have access to information: Regarding HIV / AIDS; Provided by facilities licensed or operated by the [facility] Office of Mental Health; or Provided by the [facility] Office for People With Developmental Disabilities. If such information is present, then the following [facility] mandated warning applies: This information has been [...] law may result in a fine or shelter sentence or both. A general authorization for the release of medical or other information is NOT sufficient authorization for further disc losure. Family History Family Member Name Family Member Gender Family Member Status Date o f Status Description Data Source(s) Unknown Male Diagnosis 07/15/2016 12:00:00 AM EDT [facility] ([facility]) Unknown Male Diagnosis 07/15/2016 12:00:00 AM EDT [facility] ([facility]) Encounters Encounter Providers Location Date Indications Data Source(s ) Attender: Esperanza Wahl 12/2020 12:24:00 PM EDT - 07/15/2021 12:24:00 PM EDT [facility] ([facility]) Outpatient Attender: DHRUV JAIN 06/13 06:00:45 PM EDT - 07/11/2021 06:23:31 PM EDT [facility] ([facility] ) Attender: Paige Hooper NP MANAGER OF SECURITY VALOIRE Wahl 1 07:42:00 AM EDT - 06/23/2021 07:42:00 AM EDT [facility] ([facility]) Attender: Esperanza Wahl 08/2021 08:50:00 AM EDT - 06/22/2021 08:50:00 AM EDT [facility] ([facility]) OutpatientPREV VISIT, EST, AGE 18-39 Attender: Paige Hooper NP MANAGER OF SECURITY VALORIE Wahl 06/17/2021 01:30:00 PM EDT - 06/17/2021 01:30:00 PM ED T Abnormal uterine and vaginal bleeding, unspecifiedOther specified noninflammatory disorders of vaginaUrgency of urinationCandidiasis of vulva and vaginaOther sex counselingHuman immunodeficiency virus [HIV] counselingEncntr for software tools developer exam (general) (routine) w abnormal findingsEncounter for initial prescription of contraceptive pillsEncounter for oth general cnsl and advice on contraception [facility] ([facility]) Abnormal uterine and vaginal bleeding, u nspecified Other specified noninflammatory disorder s of vagina Urgency of urination Candidiasis of vulva and vagina Other sex counseling Human immunodeficiency virus [HIV] couns eling Encntr for software tools developer exam (general) (routine) w abnormal findings Encounter for initial prescription of co ntraceptive pills Encounter for oth general cnsl and advic e on contraception Attender: Kainna Wahl 09/2020 07:19:00 AM EDT - 06/11/2021 07:19:00 AM EDT [facility] ([facility]) Attender: Kianna Wahl 06:47:00 PM EDT - 06/10/2021 06:47:00 PM EDT Acute cystitis without hematuria [facility] ([facility]) Acute cystitis without hematuria Attender: Kianna Wahl 08:54:00 AM EDT - 06/07/2021 08:54:00 AM EDT Acute vaginitis [facility] ([facility]) Acute vaginitis OutpatientOFFICE/OUTPATIENT VISIT, NEW Attender: Kianna SALVADOR PPNCNY Wasola 06/04/2021 07:30:00 AM EDT - 06/04/2021 07:30:00 AM ED T Frequency of micturitionEncounter for oth general cnsl and advice on contraceptionEncntr screen for infections w sexl mode of transmissOther sex counselingAbnormal uterine and vaginal bleeding, unspecifiedHuman immunodeficiency virus [HIV] counseling [facility] ([facility]) Frequency of micturition Encounter for oth general cnsl and advic e on contraception Encntr screen for infections w sexl mode of transmiss Other sex counseling Abnormal uterine and vaginal bleeding, u nspecified Human immunodeficiency virus [HIV] couns [facility] Outpatient [address] [address] 06/26/2020 12:00:00 AM EDT eC ([facility]) Medications Medication Brand Name Start Date Product [...] Day Pack [facility] ([facility]) Apri 0.15 mg-0.03 mg tablet {21 (desogestrel 0.15 MG / ethinyl estradiol 0.03 MG Oral Tablet) / 7 (inert ingredients 1 MG Oral Tablet) } Pack 06/17/2021 12:00:00 AM EDT completed Apri 28 Day Pack [facility] ([facility]) Fluconazole 150 MG Oral Tablet fluconazole 150 mg tabl et fluconazole 150 mg tablet 06/17/2021 12:00:00 AM EDT completed 1 po x 1 for fungal infection [facility] ([facility]) NITROFURANTOIN, MACROCRYSTALS 25 MG / Ni [...] 75 MG Oral Capsule [Macrobid] [facility] ([facility] Metronidazole 500 MG Oral Tablet metronidazole 500 mg tablet metronidazole 500 mg tablet 06/07/2021 12:00:00 AM EDT 1 {tablet} ORAL acti ve take 1 tablet by oral route every 12 hours [facility] ([facility]) Metronidazole 500 MG Oral Tablet METRONIDAZOLE [...] MOUTH THREE TIMES A DAY SOLD: 09/15/2020 [facility] 600 mg 09/15/2020 12:00:00 AM EST tablet 28 TAKE ONE TABLET BY MOUTH FOUR TIMES A DAY TAKE ONE TABLET BY MOUTH FOUR TIMES A DAY SOLD: 09/15/2020 [facility] MetFORMIN HCl ER 500 MG MetFORMIN HCl ER 500 MG 06/26/2020 12:00:00 A M EDT active MetFORMIN HCl ER 500 MG [facility] Escitalopram 5 MG Oral Tablet ESCITALOPRAM OXALATE 06/04/2020 12 :00:00 AM EDT tablet 30 TAKE ONE TABLET BY MOUTH EVERY D AY TAKE ONE TABLET BY MOUTH EVERY DAY SOLD: 06/09/2020 [facility] Insurance Providers Payer name Policy type / Coverage type Policy ID Covered green party ID Covered green party's relationship to roberts Policy Roberts Plan Information POMCO [id number] FA2 [id number] [facility] Commercial Insurance Co. [id number] Parent [id number] [facility] Commercial Insurance Co. [id number] Self [id number] Medicaid S [id number] S [id number] D [facility] Care [facility] P [id number] S [id number] [facility] Care - [facility] Community Plan S UNAVAILABLE S UNAVAILABLE Medicaid Dental O UNAVAILABLE S UN AVAILABLE Medicaid O UNAVAILABLE S UNAVAILA BLE D [facility] Care [facility] O UNAVAILABLE S UNAVAILABLE POMCO [id number] [id number] MEDICAID [id number] SP [id number] MEDICAID M [id number] S [id number] [employer] PPO O [id number] S [id number] [facility] COMMUNITY PLAN MCDHMO [id number] SP [id number] [employer] PPO P [id number] C [id number] [facility] COMMUNITY PLAN MCDO [id number] SP [id number] Medicaid Dental O [id number] S [id number] Problems, Conditions, and Diagnoses Code Display Name Description Problem Type Effective Dates Data Source(s) E66.9 [id number] Obesity without seri ous comorbidity, unspecified classification, unspecified obesity type Problem 07/02/2020 12:00:00 AM EDT eCW1 ([facility]) F41.1 [id number] Generalized anxiety disorder Problem 020 12:00:00 AM EDT [facility]) Surgeries/Procedures Procedure Description Date Indications Data Source(s) CVR Larder Cook.Svc. STI / H 06/17/2021 12:00:00 AM EDT - 06/17/2021 12:00:00 AM EDT [facility] ([facility]) CVR Larder Cook.Svc. Other 06/17/2021 12:00:00 AM EDT - 2020 12:00:00 AM EDT [facility] ([facility]) CVR Larder Cook.Svc. Contraceptive 06/17/2021 12 :00:00 AM EDT - 06/17/2021 12:00:00 AM EDT [facility] ([facility]) CVR Med.Svc. Height/Weight 06/17/2021 12 :00:00 AM EDT - 06/17/2021 12:00:00 AM EDT [facility] ([facility]) CVR Blood Pressure 06/17/2021 12:00:00 AM EDT - 2020 12:00:00 AM EDT [facility] ([facility]) HCS Without Test 06/17/2021 12:00:00 AM EDT - 06/17/20 21 12:00:00 AM EDT [facility] ([facility]) FLUCONAZOLE 06/17/2021 12:00:00 AM EDT - 06/17/2021 1 2:00:00 AM EDT [facility] ([facility]) Apri 06/17/2021 12:00:00 AM EDT - 06/17/2021 1 2:00:00 AM EDT [facility] ([facility]) CYTOPATH, C/V, INTERPRET 06/17/2021 12:0 0:00 AM EDT - 06/17/2021 12:00:00 AM EDT [facility] ([facility]) HPV, DNA, AMP PROBE HIGH RISK 06/17/2021 12:00:00 AM EDT - 06/17/2021 12:00:00 AM EDT [facility] ([facility]) CYTOPATH, C/V, THIN LAYER 06/17/2021 12: 00:00 AM EDT - 06/17/2021 12:00:00 AM EDT [facility] ([facility]) PREV VISIT, EST, AGE 18-39 06/17/2021 12 :00:00 AM EDT - 06/17/2021 12:00:00 AM EDT [facility] ([facility]) N.GONORRHOEAE, URINE 06/04/2021 12:00:00 AM EDT - 06/04/2021 12:00:00 AM EDT [facility] ([facility]) CHYLMD TRACH, URINE 06/04/2021 12:00:00 AM EDT - 06/04 12:00:00 AM EDT [facility] ([facility]) CVR Larder Cook.Svc. STI / H 06/04/2021 12:00:00 AM EDT - 06/04/2021 12:00:00 AM EDT [facility] ([facility]) CVR Larder Cook.Svc. Contraceptive 06/04/2021 12 :00:00 AM EDT - 06/04/2021 12:00:00 AM EDT [facility] ([facility]) CVR Med.Svc. Height/Weight 06/04/2021 12 :00:00 AM EDT - 06/04/2021 12:00:00 AM EDT [facility] ([facility]) CVR Blood Pressure 06/04/2021 12:00:00 AM EDT - 2020 12:00:00 AM EDT [facility] ([facility]) HCS Without Test 06/04/2021 12:00:00 AM EDT - 06/04/20 21 12:00:00 AM EDT [facility] ([facility]) OFFICE/OUTPATIENT VISIT, NEW 06/04/2021 12:00:00 AM EDT - 06/04/2021 12:00:00 AM EDT [facility] ([facility]) SMEAR, WET MOUNT, SALINE/INK 06/04/2021 12:00:00 AM EDT - 06/04/2021 12:00:00 AM EDT [facility] ([facility]) ASSAY OF BODY FLUID ACIDITY 06/04/2021 1 2:00:00 AM EDT - 06/04/2021 12:00:00 AM EDT [facility] ([facility]) TRICHOMONAS VAGIN, DIR PROBE 06/04/2021 12:00:00 AM EDT - 06/04/2021 12:00:00 AM EDT [facility] ([facility]) SANCHES VAG, DNA, DIR PROBE 06/04/2021 1 2:00:00 AM EDT - 06/04/2021 12:00:00 AM EDT [facility] ([facility]) SHARMILA, DNA, DIR PROBE 06/04/2021 12:00 :00 AM EDT - 06/04/2021 12:00:00 AM EDT [facility] ([facility]) URINE CULTURE/COLONY COUNT 06/04/2021 12 :00:00 AM EDT - 06/04/2021 12:00:00 AM EDT [facility] ([facility]) N.GONORRHOEAE, SWAB 06/04/2021 12:00:00 AM EDT - 06/04 12:00:00 AM EDT [facility] ([facility]) CHYLMD TRACH, SWAB 06/04/2021 12:00:00 AM EDT - 2020 12:00:00 AM EDT [facility] ([facility]) Results ID Date Data Source [id number] 07/11/2021 06:15:00 PM EDT [facility] Name Value Range Interpretation Code Description Data Sandy rce(s) Supporting Document(s) SARS-CoV-2 RNA Resp Ql ALIDA+probe DETECTED [facility] This lab was ordered by CARLOS rai and reported by CARLOS Oneill. ID Date Data Source [id number] 06/04/2021 08:35:24 AM EDT [facility] ([facility]) Name Value Range Interpretation Code Description Data Sandy rce(s) Supporting Document(s) Hyphae/Sharmila: no; Budding yeast: no; Trich: no; Clue cells: no; WBCs: no; Amine/Whiff test: negative; pH: 5.5 Wet Prep [facility] ([facility]) ID Date Data Source [id number] 06/04/2021 08:35:06 AM EDT [facility] ([facility]) Name Value Range Interpretation Code Description Data Sandy rce(s) Supporting Document(s) pH: 5.5. Vaginal pH [facility] ([facility]) Procedure Social History Code Duration Value Status Description Data Source(s ) Smoking 07/15/2021 12:00:00 AM EDT Never smoker completed Never s radhaker [facility] ([facility]) Smoking 06/26/2020 12:00:00 AM EDT Never Smoker completed Never S aniket [facility]1 ([facility]) Vital Signs ID Date Data Source UNK Name Value Range Interpretation Code Description Data Source(s) Body height 157.48 cm 157.48 cm [facility]) Body weight 142.609 kg 142.609 kg [facility] ([facility]) Systolic blood pressure 128 mm[Hg] 128 mm[Hg] N [facility] ([facility]) Diastolic blood pressure 86 mm[Hg] 86 mm[Hg] [facility] ([facility]) Body mass index (BMI) [Ratio] 57.50 kg/m2 Overweight 57.50 kg/m2 [facility] ([facility]) Body height 157.48 cm 157.48 cm [facility] ([facility]) Body weight 142.882 kg 142.882 kg [facility] ([facility]) Systolic blood pressure 138 mm[Hg] 138 mm[Hg] N [facility] ([facility]) Diastolic blood pressure 82 mm[Hg] 82 mm[Hg] [facility] ([facility]) Body mass index (BMI) [Ratio] 57.61 kg/m2 Overweight 57.61 kg/m2 [facility] ([facility]) Body weight 333.6 [lb_av] 333.6 [lb_av] eCW1 ([facility]) Body height 62 [in_i] 62 [in_i] eCW1 ([facility]) Body mass index (BMI) [Ratio] 61.01 kg/m2 61.01 kg/m2 eCW1 [facility]) Heart rate 88 /min 88 /min eCW1 ([facility]) Respiratory rate 18 /min 18 /min eCW1 ([facility]) Body temperature 97.3 [degF] 97.3 [degF] [facility] ( [facility] Systolic blood pressure 118 mm[Hg] 118 mm[Hg] e CW1 ([facility]) Diastolic blood pressure 64 mm[Hg] 64 mm[Hg] eCW1 [facility]) Patient Treatment Plan of Care Planned Activity Planned Date Details Description Data Source (s) Apri 0.15 mg-0.03 mg tablet 07/15/2021 12:00:00 AM EDT [facility] ([facility]) Apri 0.15 mg-0.03 mg tablet 06/17/2021 12:00:00 AM EDT [facility] ([facility]) Fluconazole 150 MG Oral Tablet 06/17/2021 12:00:00 AM EDT [facility] ([facility]) NITROFURANTOIN, MACROCRYSTALS 25 MG / Ni trofurantoin, Monohydrate 75 MG Oral Capsule [Macrobid] 06/10/2021 12:00:00 AM EDT Ne xtGen ([facility]) Metronidazole 500 MG Oral Tablet 06/07/2021 12:00:00 AM EDT [facility] ([facility]) MetFORMIN HCl ER 500 MG 06/26/2020 12:00:00 AM EDT eCW1 ([facility])
[2021-07-19 18:30] LABS: HCG, SERUM QUALITATIVE NEGATIVE (NEGATIVE)
[2021-07-19] MEDS ORDERED: COMBIVENT RESPIMAT 100-20MCG INHALER 4GM INH PRN (18:45)
[2021-07-19] MEDS: dexameTHASONE 20MG/5ML VIAL (J1100 PER 1MG) IV SCH (19:28)
[2021-07-19 19:30] LABS: INR 0.91; PARTIAL THROMBOPLASTIN TIME 24.4 SECONDS (25.9-37.0); PROTHROMBIN TIME 12.6 SECONDS (12.7-14.5)
--- NOTE | 2021-07-19 19:35 | HPEPDOC ---
[facility] Medical History & Physical Date of Admission Jul 19, 2021 Date of Service: Jul 19, 2021 History and Physical CHIEF COMPLAINT: Cough cold symptoms for 1 week coronavirus positive on 07/11/2021 HISTORY OF PRESENT ILLNESS: 25-year-old morbidly obese female BMI 56.1 with no past medical history aside from depression presents emergency room with cough cold symptoms for 1 week tested positive for coronavirus on 07/11/2021 and was being monitored by public health now with worsening dyspnea at rest. Patient has been using her pulse oximeter and noted that she was 86% on room air this morning when she woke up. She complains of cough productive of white sputum, but denies any fever chills nausea vomiting abdominal pain chest pain pressure tightness lightheadedness dizziness headaches diarrhea She admits to having loss of smell and taste. She denies myalgias, joint pains, FREEMAN, and weakness. In the ER, CXR: b/l infiltrates. Hospitalist was asked to admit the pt for hypoxia due to covid 19. PAST MEDICAL HISTORY: Morbid obesity BMI 56.1 PAST SURGICAL HISTORY: Vaginal deliveries SOCIAL HISTORY: Full code denies alcohol tobacco recreational drug use FAMILY HISTORY: Maternal grandmother with cervical cancer ALLERGIES: Please see below. REVIEW OF SYSTEMS: 10 point review of systems negative aside from positive findings in HPI HOME MEDICATIONS: Please see below. PHYSICAL EXAMINATION: VITAL SIGNS: See below GENERAL APPEARANCE: No distress speaks in full sentences no cyanosis pallor HEENT: No stridor JVD thyromegaly moist mucous membranes CARDIOVASCULAR: S1-S2 regular rate rhythm LUNGS: Diminished breath sounds fine crackles no wheezing or rales ABDOMEN: Obese positive bowel sounds soft nontender nondistended. EXTREMITIES: No cyanosis or clubbing LABORATORY DATA: See below. IMAGING: See below MICROBIOLOGY: Please see below. ASSESSMENT: 25-year-old female with history of morbid obesity, vaginal deliveries, and depression presents with worsening dyspnea hypoxic 86% on room air at home due to coronavirus pneumonia. Acute hypoxic respiratory failure Coronavirus pneumonia Morbid obesity Depression PLAN: Patient will be admitted admitted to 4 main coronavirus unit started on suppleme ntal oxygen to keep oxygen saturations above 90%, IV remdesivir, aspirin, Lovenox, baricitinib, Decadron 10 mg IV twice daily, as needed bronchodilators. She may be resumed on home medications. Vital Signs Vital Signs Date Time Temp Pulse Resp B/P (MAP) Pulse Ox O2 Delivery O2 Flow Rate FiO2 07/19/21 17:14 98.6 109 18 130/83 (99) 96 Room Air Laboratory Data Labs 24H Laboratory Tests 2 07/19/21 15:39: Immature Granulocyte % (Auto) 2.8, Neutrophils (%) (Auto) 56.1, Lymphocytes (%) (Auto) 34.2, Monocytes (%) (Auto) 6.1, Eosinophils (%) (Auto) 0.3, Basophils (%) (Auto) 0.5, Neutrophils # (Auto) 3.4, Lymphocytes # (Auto) 2.1, Monocytes # (Auto) 0.4, Eosinophils # (Auto) 0.0, Basophils # (Auto) 0.0, Nucleated Red Blood Cells % (auto) 0.0, Erythrocyte Sedimentation Rate 45H, Anion Gap 10, Glomerular Filtration Rate > 60.0, Lactic Acid Level 1.3, Calcium Level 8.6, Total Creatine Kinase 1266H, Creatine Kinase MB 3.6, Creatine Kinase MB Relative Index 0.28, Troponin I < 0.02, C-Reactive Protein, Quantitative 3.23H, Human Chorionic Gonadotropin, Qual NEGATIVE 07/19/21 15:50: Blood Gas Bicarbonate Standard 25.3, Arterial Blood pH 7.460H, Arterial Blood Partial Pressure CO2 35.2, Arterial Blood Partial Pressure O2 71.5L, Arterial Blood Total CO2 25.6, Arterial Blood HCO3 24.5, Arterial Blood Base Excess 1.0, Arterial Blood Oxygen Saturation 94.5L CBC/BMP Laboratory Tests 07/19/21 15:39 Microbiology Microbiology 07/19/21 Respiratory Virus Panel (PCR) ([facility]), Received Pending Home Medications Scheduled Desogestrel-Ethinyl Estradiol (Isibloom 28 Day Tablet) 1 Each Tablet, 1 TAB PO QHS Allergies Coded Allergies: No Known Allergies (Unverified , 07/19/21) A-FIB/CHADSVASC A-FIB History Current/History of A-Fib/PAF?: No Current PO Anticoag Therapy: No Age/Risk Factor Scoring CHADSVASC: CHADSVASC Response (Comments) Value Age Risk Factor Age < 65 years old 0 Gender Risk Factor Female 1 Hx of CHF No 0 Hx of HTN No 0 Hx of Stroke/TIA/or VTE No 0 Hx of Diabetes No 0 Hx of Vascular Disease No 0 Total 1 Treatment Treatment ordered: NONE NATHAN ORELLANA MD Jul 19, 2021 18:43
[2021-07-19] MEDS ORDERED: REMDESIVIR 200 MG in NS 250 ML IV ONE (21:00)
[2021-07-19] MEDS ORDERED: SODIUM CHLORIDE 0.9% INJ 10 ML SYR IV ONE (21:00)
[2021-07-19 21:15] VITALS: BP 109/58
[2021-07-19 21:47] LABS: APPEARANCE, URINE CLEAR (CLEAR); BACTERIA, URINE AUTO NEGATIVE (NEGATIVE); BILIRUBIN, URINE AUTO NEGATIVE (NEGATIVE); BLOOD, URINE BLOOD NEGATIVE (NEGATIVE); COLOR, URINE YELLOW (YELLOW); GLUCOSE, URINE (UA) AUTO NEGATIVE (NEGATIVE); KETONE, URINE AUTO NEGATIVE (NEGATIVE); LEUKOCYTE ESTERASE, URINE AUTO NEGATIVE (NEGATIVE); MUCUS, URINE SMALL (NEGATIVE); NITRITE, URINE AUTO NEGATIVE (NEGATIVE); PROTEIN, URINE AUTO NEGATIVE (NEGATIVE); RBC, URINE AUTO 0 /HPF (0-3); SPECIFIC GRAVITY URINE AUTO 1.008 (1.002-1.035); SQUAMOUS EPITHELIAL CELL UR AU 0 /HPF (0-6); UROBILINOGEN, URINE AUTO 0.2 mg/dL (0.0-2.0); WBC, URINE AUTO 2 /HPF (0-3)
[2021-07-20 04:00] VITALS: BP 112/74
[2021-07-20 06:22] LABS: HEMATOCRIT 37.5 % (36.0-47.0); HEMOGLOBIN 12.1 g/dl (12.0-15.5); MEAN CORPUSCULAR HEMOGLOBIN 28.1 pg (27.0-33.0); MEAN CORPUSCULAR HGB CONC 32.3 g/dl (32.0-36.5); PLATELET COUNT, AUTOMATED 233 10^3/uL (150-450); RED BLOOD COUNT 4.31 10^6/uL (4.00-5.40); WHITE BLOOD COUNT 3.4 10^3/uL (4.0-10.0)
--- NOTE | 2021-07-20 06:36 | ECGEPIP ---
[facility] - ED Test Date: 2021-07-19 Pat Name: MACKENZIE MOORE Department: Room: - Gender: Female Front Attendant: FLAVIO : 1995 Requested By: EVERETT Dougherty PA-C Order Number: [id number] Reading MD: Leland Rios Measurements Intervals [place] Rate: 111 P: 47 RI: 132 QRS: 16 QRSD: 76 T: 59 QT: 326 QTc: 443 Interpretive Statements Sinus tachycardia Cannot rule out Anterior infarct , age undetermined Nonspecific ST T wave changes No prior ECG for comparison Electronically Signed on 07-20-2021 6:36:03 EST by Leland Rios
[2021-07-20 06:38] LABS: BLOOD UREA NITROGEN 6 MG/DL (7-18); CALCIUM LEVEL 8.5 MG/DL (8.5-10.1); CARBON DIOXIDE LEVEL 28 MEQ/L (21-32); CHLORIDE LEVEL 105 MEQ/L (98-107); CREATININE FOR GFR 0.66 MG/DL (0.55-1.30); GLOMERULAR FILTRATION RATE > 60.0 (>60); GLUCOSE, FASTING 272 MG/DL (70-100); MAGNESIUM LEVEL 2.2 MG/DL (1.8-2.4); POTASSIUM SERUM 3.9 MEQ/L (3.5-5.1); SODIUM LEVEL 139 MEQ/L (136-145)
[2021-07-20] MEDS: dexameTHASONE 20MG/5ML VIAL (J1100 PER 1MG) IV SCH ×2 (07:02→18:42)
[2021-07-20 08:36] LABS: ATYPICAL LYMPH 3 % (0-5); LYMPHOCYTES 29 % (16-44); MONOCYTES 7 % (0-5); NEUTROPHILS 61 % (28-66); PLATELET ESTIMATE NORMAL (NORMAL)
[2021-07-20] MEDS: ASPIRIN 81MG ENTERIC TABLET PO SCH (09:20)
[2021-07-20] MEDS: ENOXAPARIN 40MG/0.4ML SYRINGE (J1650 PER 10MG) SC SCH (09:20)
--- NOTE | 2021-07-20 10:40 | IPNPDOC ---
Date Seen The patient was seen on 07/20/21. Progress Note SUBJECTIVE: Patient denies chest pain pressure tightness or shortness of breath dyspnea exertion Headache changes in vision dizziness lightheadedness nausea vomiting diarrhea abdominal pain. Her sense of smell and taste are returning. Appetite is better. PHYSICAL EXAMINATION: VITAL SIGNS: See below GENERAL APPEARANCE: No distress speaks in full sentences no cyanosis pallor Head of bed elevation 45 degrees no use of respiratory accessory muscles HEENT: No stridor JVD thyromegaly moist mucous membranes No tripod positioning no cervical lymphadenopathy CARDIOVASCULAR: S1-S2 regular rate rhythm no S3 LUNGS: Diminished breath sounds fine crackles no wheezing or rales Air entry is equal bilaterally inspiratory expiratory ratio 1:2 ABDOMEN: Obese positive bowel sounds soft nontender nondistended. No hepatosplenomegaly no CVA tenderness EXTREMITIES: No cyanosis or clubbing. No pitting edema LABORATORY DATA: See below. IMAGING: See below MICROBIOLOGY: Please see below. ASSESSMENT: 25-year-old female with history of morbid obesity, vaginal deliveries, and depression presents with worsening dyspnea hypoxic 86% on room air at home due to coronavirus pneumonia. Acute hypoxic respiratory failure Coronavirus pneumonia Morbid obesity Depression PLAN: Continue supplemental oxygen to keep saturations at 90 to 92%. Continue on aspirin Decadron remdesivir Lovenox As needed albuterol Discharge home in 1 to 2 days. May need supplemental oxygen as outpatient if O2 sat is less than 90% with ambulation at discharge Continue droplet and contact precautions. Encourage early ambulation VS, I&O, 24H, Fishbone Vital Signs/I&O Vital Signs Date Time Temp Pulse Resp B/P (MAP) Pulse Ox O2 Delivery O2 Flow Rate FiO2 07/20/21 04:00 96.7 85 20 112/74 (87) 91 Nasal Cannula 2.0 I&O- Last 24 Hours up to 6 AM 07/20/21 06:00 Intake Total 350 ml Balance 350 ml Laboratory Data 24H LABS Laboratory Tests 2 07/19/21 15:39: Immature Granulocyte % (Auto) 2.8, Neutrophils (%) (Auto) 56.1, Lymphocytes (%) (Auto) 34.2, Monocytes (%) (Auto) 6.1, Eosinophils (%) (Auto) 0.3, Basophils (%) (Auto) 0.5, Neutrophils # (Auto) 3.4, Lymphocytes # (Auto) 2.1, Monocytes # (Auto) 0.4, Eosinophils # (Auto) 0.0, Basophils # (Auto) 0.0, Nucleated Red Blood Cells % (auto) 0.0, Erythrocyte Sedimentation Rate 45H, Anion Gap 10, Glomerular Filtration Rate > 60.0, Lactic Acid Level 1.3, Calcium Level 8.6, Total Creatine Kinase 1266H, Creatine Kinase MB 3.6, Creatine Kinase MB Relative Index 0.28, Troponin I < 0.02, C-Reactive Protein, Quantitative 3.23H, Human Chorionic Gonadotropin, Qual NEGATIVE 07/19/21 15:50: Blood Gas Bicarbonate Standard 25.3, Arterial Blood pH 7.460H, Arterial Blood Partial Pressure CO2 35.2, Arterial Blood Partial Pressure O2 71.5L, Arterial Blood Total CO2 25.6, Arterial Blood HCO3 24.5, Arterial Blood Base Excess 1.0, Arterial Blood Oxygen Saturation 94.5L 07/19/21 18:49: Prothrombin Time 12.6, Prothromb Time International Ratio 0.91, Activated Partial Thromboplast Time 24.4L, OV-Rik-V-Type Natriuretic Peptide 6 07/19/21 21:36: Urine Color YELLOW, Urine Appearance CLEAR, Urine pH 6.0, Urine Specific [place] 1.008, Urine Protein NEGATIVE, Urine Glucose (Auto)(UA) NEGATIVE, Urine Ketones (Auto) NEGATIVE, Urine Blood NEGATIVE, Urine Nitrite NEGATIVE, Urine Bilirubin NEGATIVE, Urine Urobilinogen 0.2, Urine Leukocyte Esterase (Auto) NEGATIVE, Urine WBC (Auto) 2, Urine RBC (Auto) 0, Urine Hyaline Casts (Auto) 0, Urine Bacteria (Auto) NEGATIVE, Urine Squamous Epithelial Cells 0, Urine Mucus (Auto) SMALL, Urine Sperm (Auto) 07/20/21 06:11: Neutrophils (%) (Auto) , Nucleated Red Blood Cells % (auto) 0.0, Neutrophils 61, Lymphocytes (Manual) 29, Monocytes (Manual) 7H, Atypical Lymphocytes 3, Red Blood Cell Morphology NORMAL, Platelet Estimate NORMAL, Anion Gap 6L, Glomerular Filtration Rate > 60.0, Calcium Level 8.5, Magnesium Level 2.2 CBC/BMP Laboratory Tests 07/19/21 15:39 07/20/21 06:11 Microbiology Microbiology 07/19/21 Blood Culture, Received Pending 07/19/21 Respiratory Virus Panel (PCR) ([facility]) - Final, Complete SARS-CoV-2 (COVID 19) NATHAN ORELLANA MD Jul 20, 2021 10:40
[2021-07-20 11:58] LABS: CHOLESTEROL LEVEL 127 MG/DL (<200); CHOLESTEROL RISK RATIO 4.096 (<5); HDL CHOLESTEROL 31 MG/DL (>40); LDL CHOLESTEROL 67 MG/DL (<100); NON-HDL-C 96 MG/DL; TRIGLYCERIDES LEVEL 147 MG/DL (<150)
[2021-07-20 14:00] VITALS: BP 117/58
[2021-07-20 16:08] LABS: HEMOGLOBIN A1c 6.4 %
[2021-07-20 19:45] VITALS: O2SAT 95
[2021-07-20 20:17] VITALS: O2SAT 95
[2021-07-20] MEDS: REMDESIVIR 100 MG in NS 250 ML IV SCH (21:51)
[2021-07-20 22:00] VITALS: BP 159/87
[2021-07-20] MEDS: SODIUM CHLORIDE 0.9% INJ 10 ML SYR IV SCH (23:00)
[2021-07-21] VITALS (9 sets, daily range): BP systolic 124–139; BP diastolic 57–84; O2SAT 92–97
[2021-07-21 06:15] LABS: HEMATOCRIT 36.8 % (36.0-47.0); HEMOGLOBIN 11.7 g/dl (12.0-15.5); MEAN CORPUSCULAR HEMOGLOBIN 27.7 pg (27.0-33.0); MEAN CORPUSCULAR HGB CONC 31.8 g/dl (32.0-36.5); MEAN CORPUSCULAR VOLUME 87.2 fl (80.0-96.0); PLATELET COUNT, AUTOMATED 276 10^3/uL (150-450); RED BLOOD COUNT 4.22 10^6/uL (4.00-5.40)
[2021-07-21 06:25] LABS: INR 1.02; PROTHROMBIN TIME 13.8 SECONDS (12.7-14.5)
[2021-07-21 06:26] LABS: PARTIAL THROMBOPLASTIN TIME 23.3 SECONDS (25.9-37.0)
[2021-07-21 06:34] LABS: ALBUMIN 2.4 GM/DL (3.2-5.2); ALT/SGPT 116 U/L (12-78); BILIRUBIN,DIRECT 0.1 MG/DL (0.0-0.2); BILIRUBIN,TOTAL 0.3 MG/DL (0.2-1.0); BLOOD UREA NITROGEN 8 MG/DL (7-18); CALCIUM LEVEL 8.5 MG/DL (8.5-10.1); CARBON DIOXIDE LEVEL 31 MEQ/L (21-32); CHLORIDE LEVEL 106 MEQ/L (98-107); CPK CREATINE PHOSPHOKINASE 340 U/L (26-192); CREATININE FOR GFR 0.66 MG/DL (0.55-1.30); FERRITIN 225 NG/ML (8-252); GLOMERULAR FILTRATION RATE > 60.0 (>60); GLUCOSE, FASTING 261 MG/DL (70-100); LDH LACTATE DEHYDROGENASE 453 U/L (84-246); MAGNESIUM LEVEL 2.1 MG/DL (1.8-2.4); NT-PRO BNP 67 PG/ML (<125); POTASSIUM SERUM 4.5 MEQ/L (3.5-5.1); SODIUM LEVEL 140 MEQ/L (136-145); TOTAL PROTEIN 6.7 GM/DL (6.4-8.2); TROPONIN I < 0.02 NG/ML (< 0.10)
[2021-07-21] MEDS: dexameTHASONE 20MG/5ML VIAL (J1100 PER 1MG) IV SCH ×2 (06:45→18:27)
[2021-07-21 07:31] LABS: LYMPHOCYTES 15 % (16-44); MONOCYTES 9 % (0-5); NEUTROPHILS 69 % (28-66)
[2021-07-21 07:32] LABS: PLATELET ESTIMATE NORMAL (NORMAL)
[2021-07-21] MEDS: ASPIRIN 81MG ENTERIC TABLET PO SCH (07:47)
[2021-07-21] MEDS: ENOXAPARIN 40MG/0.4ML SYRINGE (J1650 PER 10MG) SC SCH (07:48)
--- NOTE | 2021-07-21 14:55 | IPNPDOC ---
Date Seen The patient was seen on 07/21/21. Progress Note SUBJECTIVE: feeling better,but c/o still feeling weak and not herself, but per RN ambulating well. o2 being weaned off. pt worried about monitor alarming at night. no h/a, cp, givens. sob better no n/v/abd pain/diarrhea. appetite ok improves sense of smell and taste. PHYSICAL EXAMINATION: VITAL SIGNS: See below GENERAL APPEARANCE: no distress speaks comfortably No tripod positioning no cervical lymphadenopathy CARDIOVASCULAR: S1-S2 regular rate rhythm no S3 LUNGS: Diminished breath sounds fine crackles no wheezing or rales Air entry is equal bilaterally inspiratory expiratory ratio 1:2 ABDOMEN: Obese positive bowel sounds soft nontender nondistended. No hepatosplenomegaly no CVA tenderness EXTREMITIES: No cyanosis or clubbing. No pitting edema LABORATORY DATA: See below. IMAGING: See below MICROBIOLOGY: Please see below. ASSESSMENT: 25-year-old female with history of morbid obesity, vaginal deliveries, and depression presents with worsening dyspnea hypoxic 86% on room air at home due to coronavirus pneumonia. Acute hypoxic respiratory failure Coronavirus pneumonia Morbid obesity Depression PLAN: doing better. dc in am w tapered dose of steroids. no abx if neg procalcitonin. continue present meds. o2 if needed if ra o2sat w ambulation <90%. quarantine per health dept recommendations at discharge. VS, [facility]&O[facility]O Vital Signs Date Time Temp Pulse Resp B/P (MAP) Pulse Ox O2 Delivery O2 Flow Rate FiO2 07/21/21 14:38 98.1 110 20 139/71 (93) 93 Room Air 07/21/21 12:00 0.0 I&O- Last 24 Hours up to 6 AM 07/21/21 06:00 Intake Total 600 ml Balance 600 ml Laboratory Data 24H LABS Laboratory Tests 2 07/21/21 05:38: Neutrophils (%) (Auto) , Nucleated Red Blood Cells % (auto) 0.0, Neutrophils 69H, Band Neutrophils 7, Lymphocytes (Manual) 15L, Monocytes (Manual) 9H, Red Blood Cell Morphology NORMAL, Platelet Estimate NORMAL, Prothrombin Time 13.8, Prothromb Time International Ratio 1.02, Activated Partial Thromboplast Time 23.3L, Fibrinogen 398, Anion Gap 3L, Glomerular Filtration Rate > 60.0, Calcium Level 8.5, Magnesium Level 2.1, Ferritin 225, Total Bilirubin 0.3, Direct Bilirubin 0.1, Aspartate Amino Transf (AST/SGOT) 91H, Alanine Aminotransferase (ALT/SGPT) 116H, Alkaline Phosphatase 95, Lactate Dehydrogenase 453H, Total Creatine Kinase 340H, Troponin I < 0.02, TJ-Hdh-I-Type Natriuretic Peptide 67, Total Protein 6.7, Albumin 2.4L, Albumin/Globulin Ratio 0.6L, Procalcitonin <0.05 CBC/BMP Laboratory Tests 07/21/21 05:38 Microbiology Microbiology 07/19/21 Blood Culture - Preliminary, Resulted No growth after 24 hours . All specim... 07/19/21 Respiratory Virus Panel (PCR) ([facility]) - Final, Complete SARS-CoV-2 (COVID 19) NATHAN ORELLANA MD Jul 21, 2021 14:55
[2021-07-21 16:09] LABS: MYCOPLASMA PNEUMONIAE IgG 148 U/mL (0-99); MYCOPLASMA PNEUMONIAE IgM <770 U/mL (0-769)
[2021-07-21] MEDS: REMDESIVIR 100 MG in NS 250 ML IV SCH (20:51)
[2021-07-21] MEDS: SODIUM CHLORIDE 0.9% INJ 10 ML SYR IV SCH (21:53)
[2021-07-22] VITALS: O2SAT 91
[2021-07-22 04:00] VITALS: BP 114/60; O2SAT 95
[2021-07-22] MEDS: dexameTHASONE 20MG/5ML VIAL (J1100 PER 1MG) IV SCH (06:29)
[2021-07-22 07:47] LABS: HEMATOCRIT 38.7 % (36.0-47.0); HEMOGLOBIN 12.4 g/dl (12.0-15.5); MEAN CORPUSCULAR HEMOGLOBIN 27.8 pg (27.0-33.0); MEAN CORPUSCULAR VOLUME 86.8 fl (80.0-96.0); PLATELET COUNT, AUTOMATED 334 10^3/uL (150-450); RED BLOOD COUNT 4.46 10^6/uL (4.00-5.40); WHITE BLOOD COUNT 9.6 10^3/uL (4.0-10.0)
[2021-07-22 08:00] VITALS: O2SAT 97
[2021-07-22 08:12] LABS: BLOOD UREA NITROGEN 12 MG/DL (7-18); CALCIUM LEVEL 8.5 MG/DL (8.5-10.1); CARBON DIOXIDE LEVEL 30 MEQ/L (21-32); CHLORIDE LEVEL 105 MEQ/L (98-107); CREATININE FOR GFR 0.74 MG/DL (0.55-1.30); GLOMERULAR FILTRATION RATE > 60.0 (>60); GLUCOSE, FASTING 256 MG/DL (70-100); MAGNESIUM LEVEL 2.3 MG/DL (1.8-2.4); POTASSIUM SERUM 4.5 MEQ/L (3.5-5.1); SODIUM LEVEL 141 MEQ/L (136-145)
[2021-07-22] MEDS: ENOXAPARIN 40MG/0.4ML SYRINGE (J1650 PER 10MG) SC SCH (08:37)
[2021-07-22] MEDS: ASPIRIN 81MG ENTERIC TABLET PO SCH (08:37)
[2021-07-22 09:11] LABS: ATYPICAL LYMPH 4 % (0-5); LYMPHOCYTES 12 % (16-44); METAMYELOCYTES 3 % (0-0); MONOCYTES 9 % (0-5); MYELOCYTES 2 % (0-0); NEUTROPHILS 70 % (28-66)
[2021-07-22 09:12] LABS: PLATELET ESTIMATE NORMAL (NORMAL); SMUDGE CELLS 1+
[2021-07-22] MEDS ORDERED: PRED10TA2 PO (10:27)
[2021-07-22 19:07] LABS: BODY FLUID CULTURE Not indicated. (.); ORGANISM ID Not indicated. (.); SPECIMEN SOURCE Urine (.); URINE STREP PNEUMONIAE ANTIGEN Negative (Negative)
== END 2021-07-22 12:15 | disposition home or self-care (01) | DRG 137 ==
LOC: M ED 11:02 → M ED INP 18:08 → M 4MAIN 21:15
PROVIDERS: ADMIT General Practice; ATTEND General Practice
DX: U07.1 COVID-19 (principal); J96.01 Acute respiratory failure with hypoxia; J12.82 Pneumonia due to coronavirus disease 2019; E66.01 Morbid (severe) obesity due to excess calories; Z68.43 Body mass index [BMI] 50.0-59.9, adult; F32.9 Major depressive disorder, single episode, unspecified

== ENCOUNTER → 2022-04-05 | Outpatient (REF) | payer OTHER ==
[~2022-04-05] MED LIST changes: +ISIB1TAB PO; +NITR100C2 PO; +PRED10TA2 PO
[2022-04-05 17:39] LABS: AMORPHOUS SEDIMENT SMALL (NEGATIVE); APPEARANCE, URINE HAZY (CLEAR); BACTERIA, URINE AUTO NEGATIVE (NEGATIVE); BILIRUBIN, URINE AUTO NEGATIVE (NEGATIVE); BLOOD, URINE BLOOD 1+ (NEGATIVE); COLOR, URINE YELLOW (YELLOW); GLUCOSE, URINE (UA) AUTO NEGATIVE (NEGATIVE); KETONE, URINE AUTO NEGATIVE (NEGATIVE); LEUKOCYTE ESTERASE, URINE AUTO NEGATIVE (NEGATIVE); MUCUS, URINE SMALL (NEGATIVE); NITRITE, URINE AUTO NEGATIVE (NEGATIVE); PROTEIN, URINE AUTO NEGATIVE (NEGATIVE); RBC, URINE AUTO 3 /HPF (0-3); SQUAMOUS EPITHELIAL CELL UR AU 1 /HPF (0-6); UROBILINOGEN, URINE AUTO 0.2 mg/dL (0.0-2.0); WBC, URINE AUTO 1 /HPF (0-3)
== END ==
LOC: M LAB REF 16:36
PROVIDERS: ATTEND Physician Assistant Medical
DX: N39.0 Urinary tract infection, site not specified (principal)

== ENCOUNTER → 2022-10-09 | Outpatient (REF) | payer OTHER ==
[2022-10-09 19:25] LABS: APPEARANCE, URINE MANUAL HAZY (CLEAR); COLOR, URINE MANUAL PINK (YELLOW)
[2022-10-09 19:26] LABS: GLUCOSE, URINE (UA) MANUAL NEGATIVE (NEGATIVE); PROTEIN, URINE MANUAL TRACE mg/dL (NEGATIVE)
[2022-10-09 19:27] LABS: BILIRUBIN, URINE MANUAL NEGATIVE (NEGATIVE); BLOOD URINE MANUAL POSITIVE (NEGATIVE); KETONE, URINE MANUAL NEGATIVE (NEGATIVE); LEUKOCYTE ESTERASE, URINE MAN NEGATIVE (NEGATIVE); NITRITE, URINE MANUAL NEGATIVE (NEGATIVE); UROBILINOGEN, URINE MANUAL NORMAL (NORMAL)
[2022-10-09 19:43] LABS: BACTERIA, URINE SMALL AMOUNT; HYALINE CAST, URINE 0-1 /lpf (0-1); MUCUS, URINE SMALL AMOUNT (NEGATIVE); RBC, URINE TNTC /hpf (0-3); SQUAMOUS EPITHELIAL CELL URINE MOD AMOUNT /hpf (SMALL AMT)
== END ==
LOC: M LAB REF 19:04
PROVIDERS: ATTEND Physician Assistant
DX: N39.0 Urinary tract infection, site not specified (principal)

== ENCOUNTER → 2022-12-15 | Outpatient (REF) | payer OTHER | LOC: M LAB REF 12:41 | PROVIDERS: ATTEND Physician Assistant | DX: J02.9 Acute pharyngitis, unspecified (principal) ==

== ENCOUNTER → 2022-12-30 | Outpatient (REF) | payer OTHER ==
[2022-12-30 13:48] LABS: APPEARANCE, URINE HAZY (CLEAR); BACTERIA, URINE AUTO 1+ (NEGATIVE); BILIRUBIN, URINE AUTO NEGATIVE (NEGATIVE); BLOOD, URINE BLOOD NEGATIVE (NEGATIVE); COLOR, URINE YELLOW (YELLOW); GLUCOSE, URINE (UA) AUTO NEGATIVE (NEGATIVE); KETONE, URINE AUTO TRACE mg/dL (NEGATIVE); LEUKOCYTE ESTERASE, URINE AUTO NEGATIVE (NEGATIVE); MUCUS, URINE SMALL (NEGATIVE); NITRITE, URINE AUTO NEGATIVE (NEGATIVE); PROTEIN, URINE AUTO NEGATIVE (NEGATIVE); RBC, URINE AUTO 4 /HPF (0-3); SPECIFIC GRAVITY URINE AUTO 1.026 (1.002-1.035); SQUAMOUS EPITHELIAL CELL UR AU 6 /HPF (0-6); UROBILINOGEN, URINE AUTO 0.2 mg/dL (0.0-2.0); WBC, URINE AUTO 2 /HPF (0-3)
== END ==
LOC: M LAB REF 12:14
PROVIDERS: ATTEND Physician Assistant
DX: N39.0 Urinary tract infection, site not specified (principal)

== ENCOUNTER → 2023-02-08 | Outpatient (REF) | payer OTHER ==
[2023-02-08 15:28] LABS: APPEARANCE, URINE HAZY (CLEAR); BACTERIA, URINE AUTO 1+ (NEGATIVE); BILIRUBIN, URINE AUTO NEGATIVE (NEGATIVE); BLOOD, URINE BLOOD 3+ (NEGATIVE); COLOR, URINE RED (YELLOW); GLUCOSE, URINE (UA) AUTO NEGATIVE (NEGATIVE); KETONE, URINE AUTO NEGATIVE (NEGATIVE); LEUKOCYTE ESTERASE, URINE AUTO NEGATIVE (NEGATIVE); MUCUS, URINE SMALL (NEGATIVE); NITRITE, URINE AUTO NEGATIVE (NEGATIVE); PROTEIN, URINE AUTO 1+ mg/dL (NEGATIVE); RBC, URINE AUTO TNTC /HPF (0-3); SPECIFIC GRAVITY URINE AUTO 1.012 (1.002-1.035); SQUAMOUS EPITHELIAL CELL UR AU 2 /HPF (0-6); UROBILINOGEN, URINE AUTO 0.2 mg/dL (0.0-2.0); WBC, URINE AUTO 7 /HPF (0-3)
== END ==
LOC: M SFHCPLAZ 13:19
PROVIDERS: ATTEND Student in an Organized Health Care Education/Training Program
DX: R35.0 Frequency of micturition (principal)

== ENCOUNTER → 2023-04-05 | Outpatient (REF) | payer OTHER ==
[2023-04-05 13:23] LABS: APPEARANCE, URINE HAZY (CLEAR); BACTERIA, URINE AUTO NEGATIVE (NEGATIVE); BILIRUBIN, URINE AUTO NEGATIVE (NEGATIVE); BLOOD, URINE BLOOD 2+ (NEGATIVE); COLOR, URINE YELLOW (YELLOW); GLUCOSE, URINE (UA) AUTO NEGATIVE (NEGATIVE); KETONE, URINE AUTO NEGATIVE (NEGATIVE); LEUKOCYTE ESTERASE, URINE AUTO TRACE (NEGATIVE); MUCUS, URINE SMALL (NEGATIVE); NITRITE, URINE AUTO NEGATIVE (NEGATIVE); PROTEIN, URINE AUTO NEGATIVE (NEGATIVE); RBC, URINE AUTO 4 /HPF (0-3); SQUAMOUS EPITHELIAL CELL UR AU 4 /HPF (0-6); UROBILINOGEN, URINE AUTO 0.2 mg/dL (0.0-2.0); WBC, URINE AUTO 2 /HPF (0-3)
== END ==
LOC: M LAB REF 12:05
PROVIDERS: ATTEND Physician Assistant
DX: N39.0 Urinary tract infection, site not specified (principal)

== ENCOUNTER → 2023-06-14 | Outpatient (REF) | payer OTHER ==
[2023-06-14 13:38] LABS: APPEARANCE, URINE HAZY (CLEAR); BACTERIA, URINE AUTO NEGATIVE (NEGATIVE); BILIRUBIN, URINE AUTO NEGATIVE (NEGATIVE); BLOOD, URINE BLOOD 1+ (NEGATIVE); COLOR, URINE YELLOW (YELLOW); GLUCOSE, URINE (UA) AUTO NEGATIVE (NEGATIVE); KETONE, URINE AUTO NEGATIVE (NEGATIVE); LEUKOCYTE ESTERASE, URINE AUTO NEGATIVE (NEGATIVE); MUCUS, URINE SMALL (NEGATIVE); NITRITE, URINE AUTO NEGATIVE (NEGATIVE); PROTEIN, URINE AUTO NEGATIVE (NEGATIVE); RBC, URINE AUTO 3 /HPF (0-3); SPECIFIC GRAVITY URINE AUTO 1.016 (1.002-1.035); SQUAMOUS EPITHELIAL CELL UR AU 3 /HPF (0-6); UROBILINOGEN, URINE AUTO 0.2 mg/dL (0.0-2.0); WBC, URINE AUTO 0 /HPF (0-3)
[2023-06-14 15:27] LABS: GC DNA AMPLIFICATION NEGATIVE (NEGATIVE)
== END ==
LOC: M LAB REF 11:42
PROVIDERS: ATTEND Physician Assistant
DX: R30.0 Dysuria (principal)

== ENCOUNTER → 2024-03-04 | Outpatient (REF) | payer OTHER ==
[2024-03-04 12:51] LABS: APPEARANCE, URINE HAZY (CLEAR); BACTERIA, URINE AUTO NEGATIVE (NEGATIVE); BILIRUBIN, URINE AUTO NEGATIVE (NEGATIVE); BLOOD, URINE BLOOD 3+ (NEGATIVE); COLOR, URINE YELLOW (YELLOW); GLUCOSE, URINE (UA) AUTO NEGATIVE (NEGATIVE); KETONE, URINE AUTO NEGATIVE (NEGATIVE); LEUKOCYTE ESTERASE, URINE AUTO 2+ (NEGATIVE); NITRITE, URINE AUTO NEGATIVE (NEGATIVE); PROTEIN, URINE AUTO NEGATIVE (NEGATIVE); RBC, URINE AUTO 23 /HPF (0-3); SPECIFIC GRAVITY URINE AUTO 1.018 (1.002-1.035); SQUAMOUS EPITHELIAL CELL UR AU 10 /HPF (0-6); UROBILINOGEN, URINE AUTO 0.2 mg/dL (0.0-2.0); WBC, URINE AUTO 29 /HPF (0-3)
== END ==
LOC: M LAB REF 12:38
PROVIDERS: ATTEND Physician Assistant Medical
DX: N39.0 Urinary tract infection, site not specified (principal)

== ENCOUNTER → 2024-04-25 | Outpatient (CLI) | payer OTHER | LOC: M PLARAD 09:20 | PROVIDERS: ATTEND Ophthalmology | DX: G93.2 Benign intracranial hypertension (principal); H05.243 Constant exophthalmos, bilateral; R22.0 Localized swelling, mass and lump, head ==

== ENCOUNTER → 2024-07-30 | Outpatient (CLI) | payer OTHER ==
[2024-07-30 14:27] LABS: ALBUMIN 3.7 G/DL (3.2-5.2); ALKALINE PHOSPHATASE 93 U/L (35-104); ALT/SGPT 59 U/L (7.0-40); AST/SGOT 27 U/L (<34); BILIRUBIN,TOTAL 0.5 MG/DL (0.3-1.2); BLOOD UREA NITROGEN 13 MG/DL (9-23); CALCIUM LEVEL 9.4 MG/DL (8.5-10.1); CARBON DIOXIDE LEVEL 30 MMOL/L (20-31); CHLORIDE LEVEL 105 MMOL/L (98-107); CHOLESTEROL LEVEL 224 MG/DL (<200); CHOLESTEROL RISK RATIO 4.69 (<5); CREATININE FOR GFR 0.54 MG/DL (0.55-1.30); GLOMERULAR FILTRATION RATE > 60.0 (>60); GLUCOSE, FASTING 92 MG/DL (60-100); HDL CHOLESTEROL 47.7 MG/DL (>40); LDL CHOLESTEROL 148.7 MG/DL (<100); NON-HDL-C 176.3 MG/DL; POTASSIUM SERUM 3.9 MMOL/L (3.5-5.1); SODIUM LEVEL 141 MMOL/L (136-145); TOTAL PROTEIN 7.6 G/DL (5.7-8.2); TRIGLYCERIDES LEVEL 138 MG/DL (<150)
[2024-07-30 14:34] LABS: HEPATITIS B SURFACE ANTIBODY POSITIVE (POSITIVE)
[2024-07-30 14:45] LABS: HEMOGLOBIN A1c 5.9 % (4.0-6.0)
[2024-07-30 14:46] LABS: HEPATITIS B SURFACE ANTIGEN NEGATIVE (NEGATIVE)
[2024-07-30 14:58] LABS: HIV 1&2 SCREEN NEGATIVE (NEGATIVE)
[2024-07-30 15:07] LABS: HEPATITIS C VIRUS ABY INDEX < 0.02 INDEX (<0.8)
[2024-07-30 20:51] LABS: GC DNA AMPLIFICATION NEGATIVE (NEGATIVE)
[2024-07-31 13:42] LABS: HSV 1 IGG TYPE SPECIFIC > 58.00 index (<0.90); HSV 2 IGG TYPE SPECIFIC < 0.90 index (<0.90)
== END ==
LOC: M PLALAB 11:06
PROVIDERS: ATTEND Student in an Organized Health Care Education/Training Program
DX: Z00.00 Encounter for general adult medical examination without abnormal findings (principal); Z12.31 Encounter for screening mammogram for malignant neoplasm of breast; Z87.440 Personal history of urinary (tract) infections; Z13.220 Encounter for screening for lipoid disorders

== ENCOUNTER → 2024-10-20 | Outpatient (REF) | payer OTHER ==
[2024-10-20 16:22] LABS: APPEARANCE, URINE CLOUDY (CLEAR); BACTERIA, URINE AUTO NEGATIVE (NEGATIVE); BILIRUBIN, URINE AUTO NEGATIVE (NEGATIVE); BLOOD, URINE BLOOD 1+ (NEGATIVE); COLOR, URINE YELLOW (YELLOW); GLUCOSE, URINE (UA) AUTO NEGATIVE (NEGATIVE); KETONE, URINE AUTO NEGATIVE (NEGATIVE); LEUKOCYTE ESTERASE, URINE AUTO TRACE (NEGATIVE); MUCUS, URINE SMALL (NEGATIVE); NITRITE, URINE AUTO NEGATIVE (NEGATIVE); PROTEIN, URINE AUTO 1+ mg/dL (NEGATIVE); RBC, URINE AUTO 6 /HPF (0-3); SQUAMOUS EPITHELIAL CELL UR AU 26 /HPF (0-6); UROBILINOGEN, URINE AUTO 0.2 mg/dL (0.0-2.0); WBC, URINE AUTO 8 /HPF (0-3)
== END ==
LOC: M LAB REF 15:47
PROVIDERS: ATTEND Physician Assistant
DX: N39.0 Urinary tract infection, site not specified (principal)

== ENCOUNTER → 2024-10-24 | Outpatient (CLI) | payer OTHER | LOC: M RAD 13:27 | PROVIDERS: ATTEND Student in an Organized Health Care Education/Training Program | DX: Z00.00 Encounter for general adult medical examination without abnormal findings (principal) ==

== ENCOUNTER → 2024-12-22 | Outpatient (REF) | payer OTHER ==
[2024-12-22 18:33] LABS: APPEARANCE, URINE HAZY (CLEAR); BACTERIA, URINE AUTO NEGATIVE (NEGATIVE); BILIRUBIN, URINE AUTO NEGATIVE (NEGATIVE); BLOOD, URINE BLOOD 3+ (NEGATIVE); COLOR, URINE YELLOW (YELLOW); GLUCOSE, URINE (UA) AUTO NEGATIVE (NEGATIVE); KETONE, URINE AUTO NEGATIVE (NEGATIVE); LEUKOCYTE ESTERASE, URINE AUTO NEGATIVE (NEGATIVE); MUCUS, URINE SMALL (NEGATIVE); NITRITE, URINE AUTO NEGATIVE (NEGATIVE); PROTEIN, URINE AUTO NEGATIVE (NEGATIVE); RBC, URINE AUTO TNTC /HPF (0-3); SPECIFIC GRAVITY URINE AUTO 1.019 (1.002-1.035); SQUAMOUS EPITHELIAL CELL UR AU 6 /HPF (0-6); UROBILINOGEN, URINE AUTO 0.2 mg/dL (0.0-2.0); WBC, URINE AUTO 3 /HPF (0-3)
== END ==
LOC: M LAB 18:14
PROVIDERS: ATTEND Physician Assistant Medical
DX: N39.0 Urinary tract infection, site not specified (principal)

== ENCOUNTER → 2025-01-10 | Outpatient (REF) | payer OTHER ==
[2025-01-10 17:53] LABS: APPEARANCE, URINE HAZY (CLEAR); BACTERIA, URINE AUTO NEGATIVE (NEGATIVE); BILIRUBIN, URINE AUTO NEGATIVE (NEGATIVE); BLOOD, URINE BLOOD NEGATIVE (NEGATIVE); COLOR, URINE YELLOW (YELLOW); GLUCOSE, URINE (UA) AUTO NEGATIVE (NEGATIVE); KETONE, URINE AUTO TRACE mg/dL (NEGATIVE); LEUKOCYTE ESTERASE, URINE AUTO TRACE (NEGATIVE); NITRITE, URINE AUTO NEGATIVE (NEGATIVE); PROTEIN, URINE AUTO NEGATIVE (NEGATIVE); RBC, URINE AUTO 0 /HPF (0-3); SPECIFIC GRAVITY URINE AUTO 1.021 (1.002-1.035); SQUAMOUS EPITHELIAL CELL UR AU 7 /HPF (0-6); UROBILINOGEN, URINE AUTO 0.2 mg/dL (0.0-2.0); WBC, URINE AUTO 0 /HPF (0-3)
== END ==
LOC: M LAB REF 17:00
PROVIDERS: ATTEND Physician Assistant
DX: N39.0 Urinary tract infection, site not specified (principal)

== ENCOUNTER → 2025-04-08 | Outpatient (REF) | payer OTHER ==
[2025-04-08 13:46] LABS: APPEARANCE, URINE HAZY (CLEAR); BACTERIA, URINE AUTO NEGATIVE (NEGATIVE); BILIRUBIN, URINE AUTO NEGATIVE (NEGATIVE); BLOOD, URINE BLOOD 2+ (NEGATIVE); GLUCOSE, URINE (UA) AUTO NEGATIVE (NEGATIVE); KETONE, URINE AUTO NEGATIVE (NEGATIVE); LEUKOCYTE ESTERASE, URINE AUTO TRACE (NEGATIVE); MUCUS, URINE SMALL (NEGATIVE); NITRITE, URINE AUTO NEGATIVE (NEGATIVE); PROTEIN, URINE AUTO 1+ mg/dL (NEGATIVE); RBC, URINE AUTO 37 /HPF (0-3); SPECIFIC GRAVITY URINE AUTO 1.028 (1.002-1.035); SQUAMOUS EPITHELIAL CELL UR AU 9 /HPF (0-6); UROBILINOGEN, URINE AUTO 0.2 mg/dL (0.0-2.0); WBC, URINE AUTO 5 /HPF (0-3)
== END ==
LOC: M LAB REF 11:37
PROVIDERS: ATTEND Physician Assistant
DX: N39.0 Urinary tract infection, site not specified (principal)